=== PATIENT | male | born 1935 | race Caucasian/White ===

== ENCOUNTER 2016-10-08 10:04 | Inpatient (IN) | payer MEDICARE ==
[2016-10-08] VITALS (13 sets, daily range): BP systolic 109–154; BP diastolic 74–103; BMI 26.8
[~2016-10-08] VITALS: Ht 188.2 cm; Wt 94.8 kg
--- NOTE | ~2016-10-08 | HEMODYNAMI ---
PATIENT:KAMRAN CANELA MEDICAL RECORD: [id number] : 37 LOCATION:[facility] ADMISSION DATE: 10/08/16 Generatedon:10/09/20169:28 Patient name: KAMRAN CANELA Patient #: [id number] SSN: : 1935 Date of study: 10/09/2016 Page: Of Hemodynamic Procedure Report Patient Data Patient Demographics Procedure consent was obtained First Name: KAMRAN Gender: Male Last Name: HILTON : 1935 [facility] Initial: C Age: 81 year(s) Patient #: [id number] Race: Additional ID: [id number] Contact details Address: [address] State: [place] City: [place] Zip code: [address] Past Medical History Allergies: No known allergies Admission Admission Data Admission Date: 10/08/2016 Admission Time: 13:02 [facility] Payor[facility] Medicare Height (in.): 74.1 BSA: 2.22 (m2) Height (cm.): 188.21 BMI: 26.85 (kg/m2) Weight (lbs.): 209.68 Weight (kg.): 95.11 Lab Results Lab Result Date: 10/08/2016 Lab Result Time: 17:00 Biochemistry Name Units Result Min Max BUN mg/dl 15 --(--*-)-- 7 18 Creatinine mg/dl 1.4 --(----)*- 0.6 1.3 CBC Name Units Result Min Max Hematocrit % 40.2 -*(----)-- 42 54 Hemoglobin g/dl 13.7 --(*---)-- 13.5 17.5 Procedure Procedure Types Cath Procedure Diagnostic Procedure LHC LHC w/Coronaries PCI Procedure Coronary Stent Initial Miscellaneous Procedures Moderate Sedation up to 45 minutes Procedure Description Procedure Date Procedure Date: 10/09/2016 Procedure Start Time: 8:36 Procedure End Time: 9:23 Procedure Staff Name Function Negro Shepherd MD Performing Physician Xander Dorman RN Nurse Fei Fernandez RT Scrub Greta Sidhu RT Monitor Procedure Data Cath Procedure Fluoroscopy Diagnostic fluoroscopy Total fluoroscopy Time: 7.4 time: 7.4 min min Diagnostic fluoroscopy Total fluoroscopy dose: dose: 1277 mGy 1277 mGy Contrast Material Contrast Material Type Amount (ml) Isovue 300 168 Entry Location Entry Primary Successful Side Size Upsize Upsize Entry Closure Succes sful Closure Location (Fr) 1 (Fr) 2 (Fr) Remarks Device Remarks Femoral Right 5 Fr 6 Fr Sheath artery Short sutured in place Estimated blood loss: 10 ml Diagnostic catheters Device Type Used For End Catheter Placement Cordis 5Fr JL 4.0 Left Coronary Catheter (MP) Angiography Cordis 5Fr 3DRC Catheter Right Coronary (MP) Angiography Cordis 5Fr Pigtail LV Angiography Catheter (MP) Procedure Complications No complications Procedure Medications Medication Administration Route Dosage Oxygen NC 2 l/min Heparin Flush Bag added to field 2 bags (1000units/500ml NS) 0.9% NaCl I.V. 100 ml/hr Fentanyl I.V. 50 mcg Heparin Bolus I.V. 6500 units Integrilin (Bolus I.V. 8.5 ml 2mg/ml) Plavix P.O. 600 mg Hemodynamics Rest BSA: 2.22 (m2) HGB: 13.7 (g/dl) O2 Consumption: Estimated: 253.72 (ml/min) O2 Co nsumption indexed: Estimated:114.29 (ml/min/m) Heart Rate: 70 (bpm) Pressure Samples Time Site Value (mmHg) Purpose Heart Use Rate(bpm) 8:45 LV 125/10,12 Snapshot 103 8:46 AO 136/82(104) Pullback 75 8:46 LV 135/14,16 Pullback 75 Gradients Valve Time Site 1 Site 2 Mean SEP/DFP Peak To Heart Use (mmHg) (sec/min) Peak Rate (mmHg) (bpm) Aortic 8:46 LV AO 0 5 0 75 135/14,16 136/82(104) Calculations Valve P-P Mean Valve Index Valve Source Name Gradient Area Flow (cm2) Aortic 0 0 0 0 Snapshots Pre Cath Intra NCS Post Cath Vital Signs Time Heart Resp SPO2 etCO2 [id number] NIBP (mmHg) Rhythm Pain Sedation Rate (ipm) (%) (mmHg) (mmHg) Status Level (bpm) 8:24:22 75 21 100 0 0 148/77(123) A-Fib 0 (11) 10(A) , No pain 8:28:34 83 19 100 0 0 127/94(113) A-Fib 0 (11) 10(A) , No pain 8:32:42 87 18 99 0 0 113/82(100) A-Fib 0 (11) 9(A) , No pain 8:36:48 73 17 98 0 0 122/83(115) A-Fib 0 (11) 9(A) , No pain 8:40:56 71 18 100 0 0 116/88(100) A-Fib 0 (11) 9(A) , No pain 8:45:03 96 17 99 0 0 122/78(94) A-Fib 0 (11) 9(A) , No pain 8:49:13 76 17 98 0 0 119/80(101) A-Fib 0 (11) 9(A) , No pain 8:53:25 79 17 99 0 0 117/72(107) A-Fib 0 (11) 9(A) , No pain 8:57:37 76 18 99 0 0 116/68(93) A-Fib 0 (11) 9(A) , No pain 9:01:43 74 16 98 0 0 122/81(110) A-Fib 0 (11) 9(A) , No pain 9:05:57 75 17 99 0 0 124/66(109) A-Fib 0 (11) 9(A) , No pain 9:10:13 85 20 98 0 0 127/77(105) A-Fib 0 (11) 9(A) , No pain 9:14:21 87 17 99 0 0 124/88(113) A-Fib 0 (11) 9(A) , No pain 9:18:31 74 16 99 0 0 126/83(105) A-Fib 0 (11) 9(A) , No pain 9:22:41 85 16 100 0 0 139/86(111) A-Fib 0 (11) 9(A) , No pain 9:25:04 77 16 100 0 0 135/93(119) A-Fib 0 (11) 9(A) , No pain Medications Time Medication Route Dose Verified Delivered Reason Notes Effectiveness by by 8:28:56 Oxygen NC 2 Xander Templey Per physician l/min Dandy Dorman RN RN 8:29:06 Heparin Flush added 2 Xander Xander used for Bag to bags Dandy Dorman RN procedure (1000units/500ml field RN NS) 8:29:20 0.9% NaCl I.V. 100 Xander Terrell Per physician ml/hr Dandy Dorman RN RN 8:31:23 Fentanyl I.V. 50 Xander Xander for sedation mcg Dandy Dorman RN RN 8:54:52 Integrilin I.V. 8.5 Xander Terrell for wasted (Bolus 2mg/ml) ml Dandy Dorman RN antiplatelet 1.5mL of RN therapy integrilin bolus 8:54:52 Heparin Bolus I.V. 6500 Xander Terrell for units Dandy Dorman RN anticoagulation RN 8:56:17 Plavix P.O. 600 Xander Terrell for wasted mg Dandy Dorman RN antiplatelet 1.5mL of RN therapy integrilin bolus Procedure Log Time Note 7:56:21 Informed consent obtained and on chart 7:57:27 ACC Patient presents with Unstable Angina CCS Anginal Class 3--Marked limitation of physical activity, angina occurs with ordinary activity.. 7:57:33 Xander Dorman RN sent for patient. Start room use. 7:57:34 Time tracking: Regular hours 7:57:38 Plan of Care:Hemodynamics will remain stable., Cardiac rhythm will remain stable., Comfort level will be maintained., Respiratory function will remain adequate., Patient/ family verbilizes understanding of procedure., Procedure tolerated without complication., Recovers from procedure without complications.. 8:00:20 Lab Result : Hemoglobin 13.7 g/dl 8:00:20 Lab Result : Creatinine 1.4 mg/dl 8:00:20 Lab Result : BUN 15 mg/dl 8:00:20 Lab Result : Hematocrit 40.2 % 8:00:54 Insurance Payor : Medicare 8:01:01 Patient Weight : 209.68 kg 8:01:31 Patient Height : 74.1 cm 8:07:42 ACCPatient has been prescribed/administered the following anti-anginal medication within the last 2 weeks: Beta Johana 8:08:30 H&P Date Dictated: 10/08/2016 Within 30 days and on chart.. 8:08:35 Lab results completed and on chart. 8:13:35 Patient received from CVICU to CCL 1 Alert and oriented. Tansferred to table in Supine position. 8:13:37 Warm blankets applied, and owen hugger turned on for patient comfort. 8:13:37 Correct patient and procedure confirmed by team. 8:13:39 ECG and BP/O2 sat monitors applied to patient. 8:23:12 Vital chart was started 8:25:35 Rhythm: atrial fibrillation 8:25:38 Full Disclosure recording started 8:25:39 Pre-procedure instructions explained to patient. 8:25:42 Baseline sample Acquired. 8:25:44 Pre-op teaching completed and patient verbalized understanding. 8:25:47 Family in waiting room. 8:25:50 Patient NPO since Midnight. 8:25:59 Patient allergic to No known allergies 8:26:01 Is the patient allergic to Iodine/contrast media? No. 8:26:03 Is patient on blood thinner?Yes 8:28:31 ACC The patient was administered the following blood thiners within the last 24 hours: None 8:28:34 Patient diabetic? No. 8:28:36 Previous problem with sedation/anesthesia? No ? 8:28:37 Snore? Yes 8:28:38 Sleep apnea? No 8:28:39 Deviated septum? No 8:28:40 Opens mouth fully? Yes 8:28:41 Sticks out tongue? Yes 8:28:42 Airway obstruction? No ? 8:28:44 Dentures? No ? 8:28:47 Pre procedure: right dorsailis pedis pulse 2+ Normal; easily identifiable; not easily obliterated 8:28:52 Patient pain scale 0/10 ?. 8:28:56 Oxygen 2 l/min NC was administered by Xander Dorman RN; Per physician; 8:29:06 Heparin Flush Bag (1000units/500ml NS) 2 bags added to field was administered by Xander Dorman RN; used for procedure; 8:29:20 0.9% NaCl 100 ml/hr I.V. was administered by Xander Dorman RN; Per physician; 8:30:04 IV patent on arrival in left hand with 0.9% NaCl at [facility]. 8:30:09 Right groin area was prepped with chlora-prep and draped in sterile fashion 8:30:10 Alarms reviewed by R. N. 8:30:10 Sharps counted by scrub and verified by R.N. 8:30:13 Use device set Femoral Dx 8:30:15 Acist Syringe opened to sterile field. 8:30:15 Bag Decanter opened to sterile field. 8:30:16 Medline Cath Pack opened to sterile field. 8:30:16 Terumo 5Fr Cisco Sheath opened to sterile field. 8:30:17 St Avila 260cm J .035 wire opened to sterile field. 8:30:18 Acist Hand Control opened to sterile field. 8:30:19 Acist Manifold opened to sterile field. 8:30:19 Diagnostic Infinity 5Fr Multipack catheter opened to sterile field. 8:30:20 Tegaderm 4 x 4 opened to sterile field. 8:30:59 Final Timeout: patient, procedure, and site verified with staff and physician. All members of the team are in agreement. 8:31:01 Right groin site verified by team. 8:31:04 Physical assessment completed. ASA score P 2 - A patient with mild systemic disease as per Negro Shepherd MD. 8:31:07 Sedation plan: IV Moderate Sedation Versed, Fentanyl 8:31:23 Fentanyl 50 mcg I.V. was administered by Xander Dorman RN; for sedation; 8:36:17 Procedure started. 8:36:42 Zero performed for pressure channel P1 8:36:53 Local anesthetic to right femoral artery with Lidocaine 2% by Negro Shepherd MD.INITIAL ACCESS ONLY 8:38:22 A 5 Fr sheath was inserted into the Right Femoral artery 8:38:58 A Cordis 5Fr JL 4.0 Catheter (MP) was advanced over the wire and used for Left Coronary Angiography. 8:42:10 Catheter removed. 8:42:17 A Cordis 5Fr 3DRC Catheter (MP) was advanced over the wire and used for Right Coronary Angiography. 8:44:07 Catheter removed. 8:44:17 A Cordis 5Fr Pigtail Catheter (MP) was advanced over the wire and used for LV Angiography. 8:45:26 LV hemodynamics recorded. 8:45:28 Injector settings: Ml/sec: 10, Volume: 20, 8:45:41 LV gram done using AGUDELO 8:48:42 Catheter removed. 8:49:03 Moblico BasixCompak Inflation Kit opened to sterile field. 8:49:04 Medtronic Launcher 6Fr AR 1.0 guide catheter opened to sterile field. 8:49:05 Perdue BMW Solon 2 J-tip 300cm 0.014 guide wir opened to sterile field. 8:49:05 High Pressure Extension Tubing (Shepherd) opened to sterile field. 8:49:13 Terumo 6Fr Cisco Sheath opened to sterile field. 8:50:40 Sheath upsized to a 6 Fr Short. 8:51:56 6 Fr AR 1.0 guide catheter was inserted over the wire 8:54:52 Integrilin (Bolus 2mg/ml) 8.5 ml I.V. was administered by Xander Dorman RN; for antiplatelet therapy; wasted 1.5mL of integrilin bolus 8:54:52 Heparin Bolus 6500 units I.V. was administered by Xander Dorman RN; for anticoagulation; 8:56:04 BMW wire advanced. 8:56:17 Plavix 600 mg P.O. was administered by Xander Dorman RN; for antiplatelet therapy; wasted 1.5mL of integrilin bolus 9:02:23 Inflation Number: 1 A Perdue Ultra Rx 4.5 x 28 Stent was prepped and advanced across the Mid RCA. The stent was deployed at 15 EVON for 0:38 (min:sec). 9:03:40 Stent catheter was removed intact over wire. 9:10:11 Wire removed. 9:10:14 Guide catheter removed. 9:10:38 Sheath removed intact; hemostasis achieved with Sheath sutured in place to the Right Femoral artery. 9:10:43 Procedure ended.(Physican Out) 9:11:44 Fluoroscopy time 07.40 minutes. 9:11:48 Flurop Dose total: 1277 9:11:48 Fluoroscopy dose: 1277 mGy 9:11:55 Contrast amount:Isovue 300 168ml. 9:11:57 Sharps counted by scrub and verified by R.N. 9:12:05 Insertion/operative site no bleeding no hematoma. 9:12:11 Post-op/insertion site Right Femoral artery dressed using a 4 x 4 and Tegaderm. 9:12:16 Post right femoral artery:stable, clean and dry 9:12:17 Post Procedure Pulses reassessed and unchanged 9:12:21 Post-procedure physical assessment completed. ASA score P 2 - A patient with mild systemic disease as per Negro Shepherd MD. 9:12:23 Post procedure rhythm: unchanged. 9:12:26 Estimated blood loss: 10 ml 9:12:28 Post procedure instruction explained to patient.Patient verbalizes understanding. 9:12:29 Patient needs reinforcement of post procedure teaching. 9:12:38 Procedure type changed to Cath procedure, Diagnostic procedure, LHC, LHC w/Coronaries, PCI procedure, Coronary Stent Initial, Miscellaneous Procedures, Moderate Sedation up to 45 minutes 9:13:02 Procedure Complication : No complications 9:13:15 See physician's report for complete and final results. 9:19:23 2.0 Silk 685H opened to sterile field. 9:20:25 Procedure and supply charges have been captured, reviewed, submitted and are correct. 9:21:51 Vital chart was stopped 9:22:38 Tegaderm 4 x 4 opened to sterile field. 9:23:12 Report given to CVICU. 9:23:15 Patient transfered to CVICU with Bed. 9:23:29 Procedure ended. 9:23:29 Full Disclosure recording stopped 9:23:42 End room use (Document Last) Intervention Summary Intervention Notes Time ActionType Lesion and Equipment Action# Pressure Duration Attributes Used 9:02:23 Place stent Mid RCA Perdue 1 15 00:39 Ultra Rx 4.5 x 28 Stent Device Usage Item Name Manufacture Quantity Catalog Hospital Part Current Minimal Lot# / Number Charge Number Stock Stock Serial# Code Acist Acist 1 29952 [id number] 070646 071206 20 Syringe Medical Systems Inc Bag Microtek 1 2002S 332223 72799 408614 5 Decanter Medical Inc. Medline Cardinal 1 [id number] 477639 30638 457027 5 Cath SpeakPhone Terumo 5Fr Terumo 1 [id number] 860047 997415 918390 [address] [address] Avila 1 888243 753477 633470 028960 30 260cm J .035 wire Acist Hand Acist 1 35733 769608 048767 499972 5 Segopotso Medical Systems Inc Acist Acist 1 72410 635486 592206 691045 5 Homeforswap Medical Systems Inc Diagnostic Cardinal 1 [id number] 982823 67191 887092 30 Infinity Health 5Fr Multipack catheter Tegaderm 4 3M 2 1626W 614588 975773 926993 5 x 4 Cordis 5Fr Cardinal 1 424163 5 JL 4.0 Health Catheter (MP) Cordis 5Fr Cardinal 1 694143 5 3DRC Health Catheter (MP) Cordis 5Fr Cardinal 1 683964 5 Pigtail Health Catheter (MP) Merit Merit 1 [id number] 220909 855191 240887 15 BasixCompak Medical Inflation Kit Medtronic Medtronic 1 [id number] 129169 10529 854986 1 Launcher 6Fr AR 1.0 guide catheter Perdue BM Perdue 1 [id number] 708081 712592 017978 5 Solon 2 Vascular J-tip 300cm 0.014 guide wir High Merit 1 [id number] 153009 62632 814313 10 Pressure Medical Extension Tubing (Shepherd) Terumo 6Fr Terumo 1 [id number] 448170 600321 388260 40 Cisco Sheath Perdue Perdue 1 [id number] 741339 731996 998869 5 [id number] Ultra Rx Vascular 4.5 x 28 Stent 2.0 Silk Ethicon 1 685H 263744 97922 606531 5 685H Signature Audit [place] Stage Time Signature Unsigned Intra-Procedure 10/09/2016 Greta 9:28:11 AM Counts RT(R) Signatures Monitor : Greta Signature : Counts RT Date : Time : [facility] [address] [place] [address]
--- NOTE | 2016-10-08 01:00 | NUR ---
PATIENT RESTING IN BED WITH EYES CLOSED, BREATHING IS EVEN AND EFFORTLESS. PATIENT O2 SAT 97% ON 2L VIA NC. S1/S2 NOTED CONTROLLED AFIB WITH OCCAISIONAL PVC ON TELEMETRY, HR 73. ALL PULSES PALPABLE, PATIENT STATES "FEELS FINE, JUST TIRED". DENIES PAIN OR OTHER NEEDS AT THIS TIME, ALL VSS AND WILL CONTINUE TO MONITOR.
[~2016-10-08 10:04] MED LIST: BAYER CHEWABLE81 MG PO; BETAPACE 80 MG80 MG PO; CENTRUM COMPLE1 EACH PO; CIPRO500 MG PO; COLACE100 MG PO; DHEA25 M1 PO; DYAZIDE 37.5/251 CAP PO; ELECTROLYTE MISC; FEXOFENADINE H180 MG PO; FISH OIL 1,0001 CA1 PO; GLUCOSAMINE & C1 CAP PO; HCTZ25 MG PO; K-DUR20 MEQ PO; LASIX20 MG PO; LOVASTATIN10 MG PO; LUTEIN20 MG PO; MACA500 MG PO; MELATONIN 3 MG1 TAB PO; NIASPAN500 MG PO; PERCOCET 7.5/321 TAB PO; PLAVIX75 MG PO; PRADAXA150 MG PO; PRADAXA75 MG PO; PRAVACHOL20 MG PO; PRAVACHOL40 MG PO; PREVACID15 MG PO; PRILOSEC20 MG PO; PROTONIX40 MG PO; THERMOTABS 1 GM1 GM PO; VERELAN180 MG PO; ZAROXOLYN2.5 MG PO; [UNRECOGNIZED DRUG - OTHER]
[2016-10-08 10:27] LABS: BASOPHILS 0.3 % (0.0-2.0); EOSINOPHILS 2.2 % (0-7); HEMATOCRIT 40.7 % (42.0-54.0); HEMOGLOBIN 13.9 g/dL (13.5-17.5); IMMATURE GRANULOCYTES 0.3 % (0-5); LYMPHOCYTES 34.8 % (15-50); MCH 30.6 pg (26.0-34.0); MCHC 34.2 g/dL (31.0-37.0); MCV 89.6 fL (80.0-100.0); MEAN PLATELET VOLUME 11.6 fL (7.4-10.4); MONOCYTES 7.7 % (2-11); NEUTROPHILS 54.7 % (40-80); RBC 4.54 10x6/uL (4.20-6.10); RDW 14.1 % (11.5-14.5); WBC 10.1 10x3/uL (4.8-10.8)
[2016-10-08 10:39] LABS: PLATELET COUNT 165 10x3/uL (130-400)
[2016-10-08 10:56] LABS: ALBUMIN 3.7 g/dL (3.4-5.0); ALKALINE PHOSPHATASE 66 U/L (46-116); ALT (SGPT) 23 U/L (10-68); BILIRUBIN - TOTAL 0.89 mg/dL (0.2-1.3); CALC OSMOLALITY 276 mosm/kg (275-300); CALCIUM 9.4 mg/dL (8.5-10.1); CARBON DIOXIDE 33.3 mmol/L (21.0-32.0); CHLORIDE - SERUM 98 mmol/L (98-107); CREATININE - SERUM 1.5 mg/dL (0.6-1.3); POTASSIUM - SERUM 3.9 mmol/L (3.5-5.1); PROTEIN - SERUM 7.2 g/dL (6.4-8.2); SODIUM 136 mmol/L (136-145); UREA NITROGEN 14 mg/dL (7-18); eGFR NON AFRICAN AMERICAN 48 mL/min (90-120)
[2016-10-08 10:57] LABS: GLUCOSE 168 mg/dL (74-106)
[2016-10-08 11:21] LABS: TROPONIN-I < 0.017 ng/mL (0.000-0.060)
[2016-10-08 12:01] LABS: INR 1.21 (0.85-1.17); PROTIME 15.1 SECONDS (11.6-15.0)
[2016-10-08 12:02] LABS: APTT 42.9 SECONDS (22.8-39.4)
--- NOTE | 2016-10-08 14:20 | NUR ---
PATIENT ARRIVED FROM ER VIA CART. ASSISTED TO BE COMFORTABLE IN BED. ADMISSION COMPLETED.
[2016-10-08] MEDS ORDERED: MULTIPLE VITAMI1 TA1 PO (14:57)
[2016-10-08] MEDS ORDERED: BAYER CHEWABLE81 MG PO (14:57)
[2016-10-08 17:06] LABS: BASOPHILS 0.2 % (0.0-2.0); EOSINOPHILS 0.2 % (0-7); HEMATOCRIT 40.2 % (42.0-54.0); HEMOGLOBIN 13.7 g/dL (13.5-17.5); IMMATURE GRANULOCYTES 0.3 % (0-5); LYMPHOCYTES 28.6 % (15-50); MCH 30.4 pg (26.0-34.0); MCHC 34.1 g/dL (31.0-37.0); MCV 89.1 fL (80.0-100.0); MEAN PLATELET VOLUME 11.3 fL (7.4-10.4); MONOCYTES 4.9 % (2-11); NEUTROPHILS 65.8 % (40-80); PLATELET COUNT 172 10x3/uL (130-400); RBC 4.51 10x6/uL (4.20-6.10); RDW 13.9 % (11.5-14.5); WBC 8.7 10x3/uL (4.8-10.8)
[2016-10-08 17:26] LABS: ANION GAP 10.3 mmol/L (8-16); CALCIUM 9.2 mg/dL (8.5-10.1); CARBON DIOXIDE 32.9 mmol/L (21.0-32.0); CREATININE - SERUM 1.4 mg/dL (0.6-1.3); POTASSIUM - SERUM 4.2 mmol/L (3.5-5.1)
--- NOTE | 2016-10-08 18:06 | NUR ---
1600 PT REMAINS IN CONTROLLED AFIB ON MONITOR. ABLE TO ANSWER QUESTIONS AND FOLLOW COMMANDS WITH NO DEFICITS. PT COMPLAINING OF THIRST AND HUNGER. EXPLAINED THAT WE WILL ASK PHYSICIAN WHEN HE ROUNDS ABOUT DIET. PT STABLE AT THIS TIME.
--- NOTE | 2016-10-08 18:08 | NUR ---
1800 PT GIVEN DINNER TRAY AND ABLE TO EAT INDEPENDENTLY. PT DENIES PAIN AT THIS TIME. CONSENT HAS BEEN SIGNED FOR CARDIAC CATH TOMORROW.
--- NOTE | 2016-10-08 19:30 | NUR ---
RECIEVED PATIENT AWAKE AND ALERT IN BED, ASSESSMENT COMPLETED PER FLOWSHEET. AO X4, STATES "DIFFICULTY REMEMBERING SOME THINGS SINCE STROKE". EYES PERRLA @ 3MM WITH BRISK RESPONSE, SCLERA IS WHITE. PATIENT IS HARD OF HEARING AND WEARS GLASSES, NO HEARING AIDS NOTED. ORAL/NASAL MUCOSA IS MOIST AND INTACT, TONGUE IS MIDLINE. S1/S2 NOTED WITH PATIENT CONTROLLED AFIB ON TELEMETRY WITH HR 78. BREATHING IS EVEN AND EFFORTLESS ON 2L VIA NC WITH O2 SAT 98%, LUNG SOUNDS CLEAR ALL LOBES. ABDOMEN SOFT AND ROUND, BOWEL SOUNDS ACTIVE X4. PATIENT VOIDS USING URINAL AND BEDSIDE COMMODE, NO DIFFICULTIES. FULL ROM ALL EXTREMITIES WITH ALL PULSES PALPABLE, CAP REFILL <3 SEC. DOOR PATCHER/PEDAL STRENGTH IS EQUAL AND BILATERAL. PIV L WRIST/R AC NOTED, PATENT AND INFUSING. PATIENT DENIES PAIN OR OTHER NEEDS AT THIS TIME, ALL VSS AND WILL CONTINUE TO MONITOR.
--- NOTE | 2016-10-08 21:00 | NUR ---
PATIENT AT BEDSIDE FOR VISITATION, EXPLAINED CATH PROCEDURE TO STATED SATISFACTION. PATIENT ON BEDSIDE USING URINAL, NO DIFFICULTIES. NO FURTHER NEEDS AT THIS TIME, ALL VSS AND WILL CONTINUE TO MONITOR.
--- NOTE | 2016-10-08 22:56 | NUR ---
REASSESSMENT COMPLETED PER FLOWSHEET, PATIENT RESTING IN BED WITH EYES OPEN WATCHING TV. S1/S2 NOTED WITH CONTROLLED AFIB ON TELEMETRY WITH HR 75. BREATHING IS EVEN AND UNLABORED ON 2L VIA NC, OXYGEN SAT 99%. PATIENT DENIES PAIN OR OTHER NEEDS AT THIS TIME, ALL VSS AND WILL CONTINUE TO MONITOR.
[2016-10-09] VITALS (25 sets, daily range): BP systolic 111–147; BP diastolic 56–94; Ht 188.2 cm; Wt 94.8 kg
--- NOTE | 2016-10-09 02:57 | NUR ---
REASSESSMENT COMPLETED PER FLOWSHEET, PATIENT RESTING IN BED WITH EYES CLOSED. S1/S2 NOTED CONTROLLED AFIB WITH PVC ON TELEMETRY, HR 73. BREATHING IS EVEN AND UNLABORED, OXYGEN SAT 98% ON 2L VIA NC. ALL PULSES PALPABLE, PATIENT DENIES PAIN OR OTHER NEEDS AT THIS TIME. ALL VSS AND WILL CONTINUE TO MONITOR.
--- NOTE | 2016-10-09 05:14 | NUR ---
CHLORHEX BATH AND LINEN CHANGE PERFORMED, TOLERATED WELL. PATIENT DENIES PAIN OR OTHER NEEDS AT THIS TIME, ALL VSS AND WILL CONTINUE TO MONITOR.
--- NOTE | 2016-10-09 07:00 | NUR ---
REC'D CARE OF PT. A&O X3.
--- NOTE | 2016-10-09 07:48 | NUR ---
NPO FOR POURER OFF
--- NOTE | 2016-10-09 08:20 | NUR ---
TO BOBBIN WINDER.
--- NOTE | 2016-10-09 09:49 | NUR ---
REC'D FROM ANIMAL SHELTER SUPERVISOR AND HOOKED UP TO CM. AFIB RATE OF 78. SATTING 100 % ON 2L O2. RIGHT GROIN SHEATH IN PLACE. NO S/S OF BLEEDING OR HEMATOMA. REMINDED HIM TO KEEP LEG STRAIGHT. HIS HAS HIS GLASSES.
--- NOTE | 2016-10-09 09:54 | NUR ---
NS INFUSING AT 100 ML/HR.
--- NOTE | 2016-10-09 10:18 | NUR ---
AT BEDSIDE. CL LIQUIDS SERVED. TOLERATED LIQUIDS WELL. DENIES OTHER NEEDS.
--- NOTE | 2016-10-09 10:56 | NUR ---
NO S/S OF BLEEDING AT RIGHT GROIN ELECTRONIC TEST TECHNICIAN SITE.
--- NOTE | 2016-10-09 11:00 | NUR ---
REASSESSMENT COMPLETED PER FLOW SHEET. NO BLEEDING AT RIGHT GROIN. NO S/S OF HEMATOMA. SHIFTING PT. FORM SIDE TO SIDE Q2 HOURS FOR COMFORT AND TO PRESERVE SKIN INTEGRITY. CLWR. CPOC.
--- NOTE | 2016-10-09 11:44 | NUR ---
LUNCH TRAY SERVED
--- NOTE | 2016-10-09 11:52 | HP ---
PATIENT: KAMRAN CANELA MEDICAL RECORD: [id number] ACCOUNT: [id number] [facility]ATION:[facility] : 36 ADMISSION DATE: 10/08/16 HISTORY AND PHYSICAL EXAMINATION HISTORY OF PRESENT ILLNESS: Mr. Canela is an 81-year-old white male, patient of Dr. Huerta, who presents to the Emergency Room with a 3-day history of nausea and sour stomach, states he woke up this morning, was sitting at the table and he felt very weak, sweating, told his he did not feel good, apparently passed out and lost consciousness for 10-12 seconds. She brought him to the Emergency Room where he had another syncopal episode that was witnessed by the Emergency Room physician, he was pulseless at that time. CPR was initiated and he had approximately 14 chest compressions. He subsequently awoken. Unfortunately, it was not on the monitor at that time. He is subsequently admitted to the ICU for further evaluation. He has a known history of some valvular heart disease and coronary artery disease. Findings are very suspicious for some type of arrhythmia. He is currently in atrial fibrillation. PAST MEDICAL HISTORY: Significant for known hypertension, coronary artery disease with previous stents, atrial fibrillation, diabetes and hyperlipidemia. PAST SURGICAL HISTORY: Include gallbladder surgery, cardiac stents, cataracts, right upper arm surgery. ALLERGIES: None known. HOME MEDICATIONS: Include Pradaxa 150 b.i.d., niacin, pravastatin 40 mg a day, sotalol 80 mg b.i.d. and aspirin a day, sodium docusate and a multivitamin. FAMILY HISTORY: Noncontributory. SOCIAL HISTORY: Former smoker, does not drink. He is . REVIEW OF SYSTEMS: He complains of some fatigue and weakness. He has had some chest discomfort. Denies any palpitations, orthopnea or edema. He has some chronic left shoulder pain. He has had some sweats, but no fever, no chills. Nausea. He has no shortness of breath. PHYSICAL EXAMINATION: VITAL SIGNS: Temperature 97.9, pulse 82, respirations 16, BP 144/92, pulse ox is 100% on nasal cannula. GENERAL: Alert, awake, in no distress. HEENT: Anicteric. Mucous membranes are moist. NECK: Soft and supple. No bruits. HEART: Regular with II/ murmur. LUNGS: Clear with good breath sounds bilaterally. ABDOMEN: Soft. No edema. NEUROLOGIC: Without any gross focal deficits. CT head reveals nothing acute. There is some encephalomalacia involving the posterior aspect of his right parietal and right temporal lobe from previous CVA. Chest x-ray shows some cardiomegaly. Discussed with Dr. Shepherd and echo looks worse with increased mitral insufficiency. IMPRESSION: HISTORY AND PHYSICAL [id number] KAMRAN CANELA 1. Syncopal episode. 2. Congestive heart failure. 3. Chest pain. 4. Known coronary artery disease. 5. Elevated BNP. 6. Renal insufficiency. 7. History of previous cerebrovascular accident, atrial fibrillation, type 2 diabetes, currently controlled by diet, history of cardiac stents. PLAN: Admit to ICU. Consult Dr. Shepherd. Echo shows increasing mitral insufficiency. We will get MRI brain. See orders for rest of plan. TRANSINT:[id number] Voice Confirmation ID: [id number] DOCUMENT ID: [id number] DEYSI CHOW DO at 1152 CC: [id number] DICTATION DATE: 10/08/16 171 LUDLOW MACHINE OPERATOR: 10/08/162020 ADM IN [facility] [address] [place] [address]
--- NOTE | 2016-10-09 13:19 | NUR ---
RESTING WITH EYES CLOSED. VSS.
--- NOTE | 2016-10-09 14:23 | NUR ---
ALFREDO AT BEDSIDE. HE DC'D RIGHT GROIN SHEATH.
--- NOTE | 2016-10-09 14:27 | NUR ---
NO S/S OF BLEEDING AT RIGHT GROIN DC'D SHEATH SITE.
--- NOTE | 2016-10-09 14:49 | NUR ---
REASSESSMENT COMPLETED PER FLOW SHEET. NO ACUTE CHANGES. DENIES NEEDS. DENIES PAIN. CLWR . CPOC.
--- NOTE | 2016-10-09 15:07 | NUR ---
FAMILY AT [facility]. UPDATED. VSS. NO S/S OF BLEEDING.
--- NOTE | 2016-10-09 16:30 | NUR ---
TOTAL ASSIST WITH DINNER TRAY.
--- NOTE | 2016-10-09 18:03 | NUR ---
FAMILY AT BEDSIDE. UPDATED.
--- NOTE | 2016-10-09 19:44 | NUR ---
ASSESSMENT COMPLETED PER FLOWSHEET, RECEIVED PATIENT AWAKE AND ALERT WITH FAMILY AT BEDSIDE. AO X4 WITH PLEASANT DEMEANOR. EYES PERRLA @ 3MM WITH BRISK RESPONSE, SCLERA IS WHITE. ORAL/NASAL MUCOSA IS MOIST AND INTACT, TONGUE IS MIDLINE. S1/S2 NOTED WITH CONTROLLED AFIB ON TELEMETRY, HR 75 AND IRREGULAR. BREATHING IS EVEN AND UNLABORED ON 2L VIA NC, LUNG SOUNDS CLEAR ALL LOBES. ABDOMEN IS SOFT AND NON-TENDER, BOWEL SOUNDS ACTIVE X4. CATH SITE R GROIN, SHEATH REMOVED WITH DRESSING CDI. AMBULATES SELF TO BATHROOM FOR VOIDING, NO DIFFICULTIES. FULL ROM ALL EXTREMITIES, ALL PULSES PALPABLE WITH CAP REFILL <3 SEC. PIV X2 NOTED L WRIST/R AC, PATENT WITH FLUIDS INFUSING. PATIENT DENIES PAIN OR OTHER NEEDS AT THIS TIME, ALL VSS AND WILL CONTINUE TO MONITOR.
--- NOTE | 2016-10-09 21:00 | NUR ---
AT BEDSIDE FOR VISITATION, ALL HS MEDS GIVEN WITHOUT DIFFICULTY. NO QUESTIONS/CONCERNS AT THIS TIME, ALL VSS AND WILL CONTINUE TO MONITOR.
--- NOTE | 2016-10-09 22:40 | NUR ---
REASSESSMENT COMPLETED PER FLOWSHEET, PATIENT RESTING IN BED WITH EYES CLOSED. S1/S2 NOTED WITH CONTROLLED AFIB ON TELEMETRY WITH HR 79, ALL PULSES PALPABLE. BREATHING IS EVEN AND EFFORTLESS ON 2L VIA NC, OXYGEN SAT 98%. R GROIN SITE IS SOFT AND NON-TENDER, NO BLEEDING NOTED WITH DRESSING CDI. PATIENT DENIES PAIN OR OTHER NEEDS AT THIS TIME, ALL VSS AND WILL CONTINUE TO MONITOR.
[2016-10-10] VITALS (8 sets, daily range): BP systolic 115–137; BP diastolic 66–91
--- NOTE | 2016-10-10 00:44 | NUR ---
PATIENT RESTING IN BED WITH EYES CLOSED, BREATHING IS EVEN AND UNLABORED. ALL PULSES PALPABLE, CAP REFILL <3 SEC. ALL VSS AND WILL CONTINUE TO MONITOR.
--- NOTE | 2016-10-10 02:53 | NUR ---
REASSESSMENT COMPLETED PER FLOWSHEET, PATIENT UP AT BEDSIDE USING URINAL. CONTROLLED AFIB ON TELEMETRY WITH HR 84, IRREGULAR. BREATHING IS EVEN AND UNLABORED, OXYGEN SAT 99% ON 2L VIA NC. AMBULATED WITHOUT ASSISTANCE, RETURNED AND REPOSITIONED. CATH SITE SOFT AND NON-TENDER, DRESSING CDI WITH PULSES PALPABLE. DENIES PAIN OR OTHER NEEDS AT THIS TIME, ALL VSS AND WILL CONTINUE TO MONITOR.
--- NOTE | 2016-10-10 05:13 | NUR ---
PATIENT RESTING IN BED WITH EYES CLOSED, BREATHING IS EVEN AND UNLABORED. CONTROLLED AFIB ON TELMETRY, HR 92 IRREGULAR. OXYGEN SAT 99% ON 2L VIA NC, ALL PULSES PALPABLE. R GROIN DRESSING CDI, SOFT WITH NO BLEEDING NOTED. ALL VSS AND WILL CONTINUE TO MONITOR.
--- NOTE | 2016-10-10 07:34 | NUR ---
0700 REPORT RECEIVED FROM ESPERANZA RO AT BEDSIDE. AM ASSESSMENT DOCUMENTED PER FLOWSHEET. PATIENT AWAKE, ALERT AND VISITING WITH AT BEDSIDE. NC 2L WITH NO RESP DISTRESS, ALL VITALS WNL.
--- NOTE | 2016-10-10 08:40 | NUR ---
AM MEDS GIVEN PER SEP. DR. TOBIN ON FLOOR TO SEE PATIENT.
--- NOTE | 2016-10-10 09:14 | NUR ---
UP FROM BED, AMBULATED TO BATHROOM FOR BOWEL MOVEMENT. RX OF PLAVIX CALLED IN AT PATIENT REQUEST TO [facility] ON [address].
--- NOTE | 2016-10-10 10:00 | NUR ---
Is the patient Alert and Oriented? Yes 0 * How many steps to enter\exit or inside your home? 13 0 * PCP DR. QUACH 0 * Pharmacy [facility] ON [address] 0 * Preadmission Environment Home with Family 0 * ADLs Independent 0 * Equipment Cane 0 * List name and contact numbers for known caregivers / representatives who currently or will assist patient after discharge: SPOUSE: NANCY [phone] 0 * Community resources currently utilized None 0 * Please name any agencies selected above. PATIENT STATES HE HAD HOUSE CALLS IN THE PAST BUT NOT CURRENTLY 0 * Additional services required to return to the preadmission environment? No 0 * Can the patient safely return to the preadmission environment? Yes 0 * Has this patient been hospitalized within the prior 30 days at any hospital? No PATIENT IS AWAKE AND ALERT, STATES HE IS INDEPENDENT IN ALL ADL'S. HIS IS HERE AND PLANS TO DRIVE HIM HOME. PATIENT STATES HIS PCP IS DR. QUACH. HE GETS HIS MEDS FROM [facility] ON [address]. HE USES A CANE TO ASSIST WITH AMBULATION. PATIENT STATES HE HAS NOT HAD HOME HEALTH BUT DID HAVE [facility] HOUSE CALLS ABOUT 2 YEARS AGO. PATIENT STATES THERE ARE 13 STEPS TO ENTER HIS HOME. NO DISCHARGE NEEDS IDENTIFIED AT THIS TIME.
--- NOTE | 2016-10-10 10:27 | NUR ---
PIV REMOVED FROM LEFT HAND WITH BANDAID APPLIED AND PIV REMOVED FROM R AC WITH BANDAID APPLIED. UP TO BEDSIDE TO DRESS WITH ASSIST FROM . D/C INSTRUCTIONS DISCUSSED WITH PATIENT AND AT BEDSIDE. WHEELED OUT VIA WHEELCHAIR BY CVICU STAFF.
--- NOTE | 2016-10-14 08:17 | EC ---
PATIENT:KAMRAN CANELA DATE OF SERVICE: 10/08/16 SEX: M MEDICAL RECORD: [id number] DATE OF : 36 LOCATION:[place] [address] AGE OF PATIENT: 81 ADMISSION DATE: 10/08/16 REFERRING PHYSICIAN: INTERPRETING PHYSICIAN: MALIA SHEPHERD M.D. ECHOCARDIOGRAM REPORT ECHO CHARGES 4 ECHO COMPLETE CLINICAL DIAGNOSIS: SYNCOPE ECHOCARDIOGRAPHIC MEASUREMENTS (adult normal given) AC root (d.<3.7cm) 4.2 LV Septum d (<1.2 cm> 1.7 Valve Excursion 2.0 LV Septum (systole) 2.3 Left Atria (s.<4.0cm> 4.6 LVPW d(<1.2cm) 1.4 RV (d.<2.3cm) 3.1 LVPW (sytole) 2.2 LV diastole(<5.6CM) 6.2 MV E-F(>70mm/sec) LV systole 4.2 LVOT Diameter 2.0 MV exc.(>10mm) Est.ejection fraction (50-75%) Pericardial Effusion N DOPPLER: LVIT A E 134 LA RVSP 64.0 LVOT 75.0 AOP1/2T Asc. Ao 95.0 RVOT 51.0 RA PA 89.0 AV Gradient Peak 3.6 AV Mean 1.9 AV Area 2.7 MV Gradient Peak 13.2 MV Mean 5.7 MV Area COMMENTS: Behavioral Modification Assistant: Lesli RAMIREZ [place] Hearing Impaired Teacher:2 Dr. Shepherd TAPE# PACS DATE OF SERVICE: 10/08/2016 INDICATION: Syncope. DESCRIPTION: Left ventricle demonstrates left ventricular hypertrophy. No regional wall motion abnormalities are seen. Estimated ejection fraction is 55%. The posterior leaflet of mitral valve demonstrates prolapse. It is somewhat redundant. I cannot exclude a ruptured chordae. There is sgnsyjff-ie-dlymju regurgitation seen. It is directed towards the septum. Left atrium is moderately dilated. The aortic valve is trileaflet. I do not see ECHOCARDIOGRAM REPORT [id number] KAMRAN CANELA stenosis or regurgitation. Right ventricle is mildly dilated. Tricuspid valve is normal. There is moderate regurgitation seen. Right ventricular systolic pressure is elevated at 64 mmHg. There is no pericardial effusion noted. IMPRESSION: 1. Left ventricular hypertrophy with preserved ejection of 55%. 2. Hflrshze-pa-ojwaxs mitral regurgitation with prolapse of the posterior leaflet. I cannot exclude a ruptured chordae. 3. Moderate tricuspid regurgitation with elevated pulmonary pressures. TRANSINT:[id number] Voice Confirmation ID: [id number] DOCUMENT ID: [id number] MALIA SHEPHERD M.D. at 0817 CC: [id number] DICTATION DATE: 10/08/16 1447 BUILDING ENGINEER: 10/09/16 1129 DIS IN 10/10/16 [place] [id number] [place] [address]
--- NOTE | 2016-10-14 08:17 | OP ---
PATIENT NAME: KAMRAN CANELA MEDICAL RECORD: [id number] :36 LOCATION:[address] ADMISSION DATE:10/08/16 SURGEON: MALIA GARRISON M.D. DATE OF OPERATION: 10/09/2016 REFERRING PHYSICIAN: Octavio Tijerina DO. PROCEDURES PERFORMED: 1. Selective coronary angiography. 2. Left heart catheterization with ventriculogram. 3. PTCA and stent placed right coronary. INDICATION: An 81-year-old gentleman who presents after a syncopal episode. EQUIPMENT USED: Diagnostic 5-Malagasy JL4, Primo right, pigtail catheter. INTERVENTION: A 6-Malagasy AR1 guide, BMW guide wire, 4.5 x 26 mm Ultra Stent. TECHNIQUE: A 5-Malagasy sheath was inserted in retrograde fashion in the right common femoral artery. Next, selective coronary angiography was performed in standard 5-Malagasy JL4 and Primo right. Left heart catheterization was performed using pigtail catheter. CORONARY ANATOMY: 1. Left main: Left main trunk is moderate in caliber. It gives rise to the LAD and circumflex. There is no obstruction. 2. LAD: This is a large caliber vessel extending to the apex. It is a smooth-walled vessel. It has mild irregularities throughout its course, but nothing worse than 20%. The first diagonal branch has been stented. The stent is occluded. The diagonal branch fills in retrograde fashion from the apical LAD. This appears to be a chronic occlusion. 3. Circumflex: This vessel is moderate in caliber. It has mild irregularities throughout its course. 4. Right coronary: This vessel is quite large and dominant. The mid vessel demonstrates an ulcerated 80% to 90% stenosis and there is thrombus seen at the lesion. 5. Left ventricle: Left ventricle is normal in size. There is mild hypokinesis noted. Estimated ejection is in the order of 45%. There does appear to be moderate mitral regurgitation. DESCRIPTION OF INTERVENTION: It was felt in all likelihood that the right coronary artery is the cause of syncopal episode as there was thrombus noted at the side of the lesion. A 70 units per kilogram of heparin was infused. Integrilin bolus was given as well. A 6-Malagasy AR1 guide was advanced and engaged in the right coronary artery. Next, a BMW guide wire was placed in the distal vessel. A 4.5 x 26 mm Ultra Stent was then placed across the stenosis and deployed at 15 atmospheres. Injection reveals stent to be widely patent with 0% residual stenosis. There is no evidence of any distal embolization from the thrombus. At this point, the wire and guide were removed. IMPRESSION: Successful percutaneous transluminal coronary angioplasty and stent of the right coronary artery with 0% residual stenosis. TRANSINT:[id number] Voice Confirmation ID: [id number] DOCUMENT ID: [id number] OPERATIVE REPORT [id number] KAMRAN CANELA TIMOTHY E M.D. at 0817 CC: [id number] DICTATION DATE: 10/09/16915 THREAD TWISTER: 10/09/16 1457 DIS IN 10/10/16 [place] [address] [place] [address]
== END 2016-10-10 10:31 | disposition home or self-care (01) | DRG 248 ==
LOC: D.ER 10:04 → D.CVICU 13:02 → D.ICU 13:02 → D.CVICU 19:47
PROVIDERS: Family Medicine; Internal Medicine Cardiovascular Disease; ADMIT Family Medicine
PROC: B2111ZZ Fluoroscopy of Multiple Coronary Arteries using Low Osmolar Contrast (ICD-10-PCS; 2016-10-09)
PROC: B2151ZZ Fluoroscopy of Left Heart using Low Osmolar Contrast (ICD-10-PCS; 2016-10-09)
PROC: 02703DZ Dilation of Coronary Artery, One Artery with Intraluminal Device, Percutaneous Approach (ICD-10-PCS; principal; 2016-10-09 08:00)
PROC: 4A023N7 Measurement of Cardiac Sampling and Pressure, Left Heart, Percutaneous Approach (ICD-10-PCS; 2016-10-09 08:00)
DX: I25.10 Atherosclerotic heart disease of native coronary artery without angina pectoris (principal); I50.31 Acute diastolic (congestive) heart failure; N17.9 Acute kidney failure, unspecified; R55 Syncope and collapse; I48.91 Unspecified atrial fibrillation; I69.398 Other sequelae of cerebral infarction; G93.89 Other specified disorders of brain; Z95.5 Presence of coronary angioplasty implant and graft; I11.0 Hypertensive heart disease with heart failure; I34.0 Nonrheumatic mitral (valve) insufficiency; E11.9 Type 2 diabetes mellitus without complications; Z87.891 Personal history of nicotine dependence

== ENCOUNTER 2017-02-22 20:06 | Observation (INO) | payer MEDICARE ==
[~2017-02-22] VITALS: Ht 188.2 cm; Wt 98.0 kg
[~2017-02-22 20:06] MED LIST changes: +MULTIPLE VITAMI1 TA1 PO
[2017-02-22 20:56] LABS: BASOPHILS 0.4 % (0-2); EOSINOPHILS 1.8 % (0-7); HEMATOCRIT 38.7 % (42.0-54.0); HEMOGLOBIN 13.2 g/dL (13.5-17.5); IMMATURE GRANULOCYTES 0.3 % (0-5); LYMPHOCYTES 36.1 % (15-50); MCH 30.8 pg (26.0-34.0); MCHC 34.1 g/dL (31.0-37.0); MCV 90.4 fL (80.0-100.0); MEAN PLATELET VOLUME 11.5 fL (7.4-10.4); MONOCYTES 10.8 % (2-11); NEUTROPHILS 50.6 % (40-80); PLATELET COUNT 196 10x3/uL (130-400); RBC 4.28 10x6/uL (4.20-6.10); RDW 14.9 % (11.5-14.5); WBC 11.1 10x3/uL (4.8-10.8)
[2017-02-22 21:15] LABS: ALBUMIN 3.4 g/dL (3.4-5.0); ALKALINE PHOSPHATASE 70 U/L (46-116); ALT (SGPT) 56 U/L (10-68); BILIRUBIN - TOTAL 0.63 mg/dL (0.2-1.3); CALC OSMOLALITY 267 mosm/kg (275-300); CALCIUM 8.7 mg/dL (8.5-10.1); CARBON DIOXIDE 29.1 mmol/L (21.0-32.0); CHLORIDE - SERUM 96 mmol/L (98-107); CREATININE - SERUM 1.4 mg/dL (0.6-1.3); GLUCOSE 120 mg/dL (74-106); POTASSIUM - SERUM 3.9 mmol/L (3.5-5.1); PROTEIN - SERUM 7.1 g/dL (6.4-8.2); SODIUM 132 mmol/L (136-145); UREA NITROGEN 17 mg/dL (7-18); eGFR NON AFRICAN AMERICAN 52 mL/min (90-120)
[2017-02-22 21:22] LABS: AMYLASE - SERUM 66 U/L (25-115); CREATINE KINASE 51 UL (21-232); LIPASE 312 U/L (73-393); PRO BNP 6119 pg/mL (0-450)
[2017-02-22 21:25] LABS: TROPONIN-I < 0.017 ng/mL (0.000-0.060)
[2017-02-22 21:44] LABS: APPEARANCE HAZY (CLEAR); BILIRUBIN NEGATIVE (NEGATIVE); COLOR YELLOW (YELLOW); GLUCOSE NEGATIVE (NEGATIVE); KETONE NEGATIVE (NEGATIVE); LEUKOCYTE ESTERASE NEGATIVE (NEGATIVE); NITRITE NEGATIVE (NEGATIVE); PROTEIN TRACE mg/dL (NEGATIVE); SPECIFIC GRAVITY 1.015 (1.005-1.020); UROBILINOGEN NORMAL (NORMAL)
[2017-02-22 21:51] LABS: BACTERIA FEW /hpf (NONE SEEN); EPITHELIAL CELLS OCC /hpf (0-5); WHITE CELLS - URINE OCC /hpf (0-5)
[2017-02-23 01:09] VITALS: BP 133/96; Ht 188.2 cm; Wt 98.0 kg
[2017-02-23 01:09] LABS: CKMB 0.4 U/L (0.0-3.6); CREATINE KINASE 44 UL (21-232); TROPONIN-I < 0.017 ng/mL (0.000-0.060)
[2017-02-23] MEDS ORDERED: CARAFATE1 G PO (01:22)
[2017-02-23] MEDS ORDERED: ZOFRAN ODT4 MG/UDTAB PO (01:22)
[2017-02-23] MEDS ORDERED: PROZAC10 MG PO (01:23)
[2017-02-23] MEDS ORDERED: OMEPRAZOLE40 MG PO (01:24)
--- NOTE | 2017-02-23 07:20 | NUR ---
AM ROUNDS- PT IN BED, WITH EYES CLOSED, BED LOW AND WHEELS LOCKED. BEDSIDE RAILS X2, CALL LIGHT IN REACH, NAD NOTED, WILL CONTINUE TO MONITOR.
[2017-02-23 07:30] LABS: CKMB 0.5 U/L (0.0-3.6); CREATINE KINASE 38 UL (21-232)
[2017-02-23 07:33] LABS: TROPONIN-I < 0.017 ng/mL (0.000-0.060)
[2017-02-23 07:34] VITALS: BP 117/73
--- NOTE | 2017-02-23 11:00 | NUR ---
PT UP AMBULATING IN THE HALLWAY WITH CANE AND FAMILY AT SIDE. NAD NOTED, WILL CONTINUE TO MONITOR.
[2017-02-23 11:50] VITALS: BP 144/90
[2017-02-23 13:19] LABS: CKMB 0.5 U/L (0.0-3.6); CREATINE KINASE 42 UL (21-232)
[2017-02-23 13:23] LABS: TROPONIN-I < 0.017 ng/mL (0.000-0.060)
--- NOTE | 2017-02-23 15:42 | NUR ---
PROVIDED VERBAL AND WRITTEN DISCHARGE TEACHING TO PT AND , BOTH VERBALIZED UNDERSTANDING REGARDING DISCHARGE TEACHING. D/C LEFT HAND IV, TIP INTACT. PT LEFT UNIT VIA WHEELCHAIR, ACCOMPANIED BY , NAD NOTED.
== END 2017-02-23 16:10 | disposition home or self-care (01) ==
LOC: D.ER 20:06 → D.M2 02-23 00:41 → OBSVTIME 02-23 00:41 → D.M2 02-23 00:41
PROVIDERS: Family Medicine; Nurse Practitioner Family; ADMIT Family Medicine
DX: R10.9 Unspecified abdominal pain (principal); I25.10 Atherosclerotic heart disease of native coronary artery without angina pectoris; Z95.5 Presence of coronary angioplasty implant and graft; I11.0 Hypertensive heart disease with heart failure; I50.9 Heart failure, unspecified; K21.9 Gastro-esophageal reflux disease without esophagitis; E11.9 Type 2 diabetes mellitus without complications; I48.91 Unspecified atrial fibrillation; Z86.73 Personal history of transient ischemic attack (TIA), and cerebral infarction without residual deficits; Z87.891 Personal history of nicotine dependence

== ENCOUNTER 2017-03-04 18:46 | Inpatient (IN) | payer MEDICARE ==
[~2017-03-04] VITALS: Ht 188.2 cm; Wt 93.6 kg
--- NOTE | ~2017-03-04 | HEMODYNAMI ---
PATIENT:KAMRAN CANELA MEDICAL RECORD: [id number] : 36 [facility] [facility] [id number] ADMISSION DATE: 03/05/17 Generatedon:03/06/20179:21 Patient name: KAMRAN CANELA Patient #: [id number] SSN: : 1935 Date of study: 03/06/2017 Page: Of Hemodynamic Procedure Report Patient Data Patient Demographics Procedure consent was obtained First Name: KAMRAN Gender: Male Last Name: HILTON : 1935 [facility] Initial: C Age: 81 year(s) Patient #: [id number] Race: Additional ID: [id number] Contact details Address: [address] State: [place] City: [place] Zip code: [address] Past Medical History Allergies: No known allergies Admission Admission Data Admission Date: 03/05/2017 Admission Time: 17:02 [facility] Lab Result Date: 03/06/2017 Lab Result Time: 5:03 Biochemistry Name Units Result Min Max BUN mg/dl 18 --(---*)-- 7 18 Creatinine mg/dl 1.6 --(----)-* 0.6 1.3 CBC Name Units Result Min Max Hematocrit % 39.8 -*(----)-- 42 54 Hemoglobin g/dl 13.6 --(*---)-- 13.5 17.5 Procedure Procedure Types Cath Procedure Diagnostic Procedure LHC [facility] w/Coronaries PCI Procedure Coronary Stent Initial Miscellaneous Procedures Moderate Sedation up to 30 minutes Procedure Description Procedure Date Procedure Date: 03/06/2017 Procedure Start Time: 8:56 Procedure End Time: 9:21 Procedure Staff Name Function Zac Ratliff MD Performing Physician Neto Tolentino RT Scrub Bethany Clemens RN Nurse Fei Fernandez RT Monitor Procedure Data Cath Procedure Fluoroscopy Diagnostic fluoroscopy Total fluoroscopy Time: 7 time: 7 min min Diagnostic fluoroscopy Total fluoroscopy dose: dose: 1044 mGy 1044 mGy Contrast Material Contrast Material Type Amount (ml) Isovue 300 129 Entry Location Entry Primary Successful Side Size Upsize Upsize Entry Closure Succes sful Closure Location (Fr) 1 (Fr) 2 (Fr) Remarks Device Remarks Femoral Right 5 Fr 6 Fr Exoseal artery Short Estimated blood loss: 10 ml Diagnostic catheters Device Type Used For End Catheter Placement Cordis 5Fr Pigtail Procedure Catheter (MP) Cordis 5Fr JL 4.0 Procedure Catheter (MP) Cordis 5Fr 3DRC Catheter Procedure (MP) Procedure Complications No complications Procedure Medications Medication Administration Route Dosage Oxygen NC 2 l/min Lidocaine 2% added to field 20 Heparin Flush Bag added to field 2 bags (1000units/500ml NS) 0.9% NaCl I.V. 100 ml/hr Versed I.V. 0.5 mg Fentanyl I.V. 50 mcg Heparin Bolus I.V. 4000 units Integrilin (Bolus I.V. 8.5 ml 2mg/ml) Plavix P.O. 600 mg Hemodynamics Rest Heart Rate: 84 (bpm) Snapshots Pre Cath Intra NCS Post Cath Vital Signs Time Heart Resp SPO2 etCO2 [id number] NIBP (mmHg) Rhythm Pain Sedation Rate (ipm) (%) (mmHg) (mmHg) Status Level (bpm) 8:43:38 84 23 97 0 0 147/110(134) A-Fib 0 (11) 10(A) , No pain 8:47:48 93 21 100 0 0 148/105(121) A-Fib 0 (11) 10(A) , No pain 8:51:58 80 17 100 0 0 138/99(128) A-Fib 0 (11) 10(A) , No pain 8:56:08 86 30 100 0 0 131/89(105) A-Fib 0 (11) 9(A) , No pain 9:00:07 79 19 98 0 0 122/97(108) A-Fib 0 (11) 9(A) , No pain 9:04:16 84 30 99 0 0 119/73(99) A-Fib 0 (11) 9(A) , No pain 9:08:19 86 27 98 0 0 106/82(100) A-Fib 0 (11) 9(A) , No pain 9:12:17 82 30 98 0 0 121/87(106) A-Fib 0 (11) 9(A) , No pain 9:16:19 88 26 98 0 0 109/94(101) A-Fib 0 (11) 9(A) , No pain 9:20:20 85 30 98 0 0 108/76(99) A-Fib 0 (11) 9(A) , No pain Medications Time Medication Route Dose Verified Delivered Reason Notes Effectiveness by by 8:40:31 Oxygen NC 2 Zac Sims used for l/min Gaudencio Clemens RN procedure 8:42:55 Lidocaine 2% added 20ml Zacdorian Frank for local to vial Gaudencio Ratliff MD anesthetic field 8:43:00 Heparin Flush added 2 Zac Zac used for Bag to bags Gaudencio Ratliff MD procedure (1000units/500ml field NS) 8:43:10 0.9% NaCl I.V. 100 Zac Sims Per physician ml/hr Gaudencio Clemens RN 8:54:17 Versed I.V. 0.5 Zac Sims for sedation mg Gaudencio Clemens RN 8:54:23 Fentanyl I.V. 50 Zac Urenaie for sedation mcg Gaudencio Clemens RN 9:01:18 Heparin Bolus I.V. 4000 Zac Sims for verifie d units Gaudencio Clemens RN anticoagulation with dr ratliff 9:02:43 Integrilin I.V. 8.5 Zac Sims for Wasted (Bolus 2mg/ml) ml Gaudencio Clemens RN antiplatelet 1.5 ml therapy of vial 9:15:26 Plavix P.O. 600 Zac Sims for mg Gaudencio Clemens RN antiplatelet therapy Procedure Log Time Note 7:58:54 Informed consent obtained and on chart 7:59:31 Time tracking: Regular hours 7:59:35 Plan of Care:Hemodynamics will remain stable., Cardiac rhythm will remain stable., Comfort level will be maintained., Respiratory function will remain adequate., Patient/ family verbilizes understanding of procedure., Procedure tolerated without complication., Recovers from procedure without complications.. 8:00:19 H&P Date Dictated: 03/05/2017 Within 30 days and on chart.. 8:00:29 Bethany Clemens RN sent for patient. Start room use. 8:19:38 Patient received from Med II to CCL 1 Alert and oriented. Tansferred to table in Supine position. 8:19:39 Warm blankets applied, and owen hugger turned on for patient comfort. 8:19:40 Correct patient and procedure confirmed by team. 8::41 ECG and BP/O2 sat monitors applied to patient. 8:24:57 Pre-procedure instructions explained to patient. 8:24:58 Pre-op teaching completed and patient verbalized understanding. 8:25:00 Family in patients room. 8:25:02 Patient NPO since Midnight. 8:25:03 Is the patient allergic to Iodine/contrast media? No. 8:25:05 Is patient on blood thinner?No 8:25:08 Patient diabetic? Yes. 8:25:10 If diabetic: On Metformin? No 8:25:25 Previous problem with sedation/anesthesia? No ? 8:25:27 Snore? Yes 8:25:29 Sleep apnea? No 8:25:30 Deviated septum? No 8:25:31 Opens mouth fully? Yes 8:25:32 Sticks out tongue? Yes 8:25:34 Airway obstruction? No ? 8:25:37 Dentures? Yes IN 8:25:41 Pre procedure: right dorsailis pedis pulse 1+ Palpable, but thready & weak; easily obliterated 8:25:44 Patient pain scale 0/10 ?. 8:26:12 IV right antecubital D/C'd due to infiltration. 8:40:31 Oxygen 2 l/min NC was administered by Bethany Clemens RN; used for procedure; 8:42:32 Vital chart was started 8:42:55 Lidocaine 2% 20ml vial added to field was administered by Zac Ratliff MD; for local anesthetic; 8:43:00 Heparin Flush Bag (1000units/500ml NS) 2 bags added to field was administered by Zac Ratliff MD; used for procedure; 8:43:10 0.9% NaCl 100 ml/hr I.V. was administered by Bethany Clemens RN; Per physician; 8::57 Baseline sample Acquired. 8:53:04 Rhythm: atrial fibrillation 8:53:12 Lab results completed and on chart. 8:53:15 Right groin area was prepped with chlora-prep and draped in sterile fashion 8:53:16 Alarms reviewed by R. N. 8:53:16 Sharps counted by scrub and verified by R.N. 8:53:21 Use device set Femoral Dx 8:53:22 Tegaderm 4 x 4 opened to sterile field. 8:53:23 Acist Manifold opened to sterile field. 8:53:23 Acist Hand Control opened to sterile field. 8:53:33 Acist Syringe opened to sterile field. 8:53:34 Bag Decanter opened to sterile field. 8:53:34 Medline Cath Pack opened to sterile field. 8:53:34 Terumo 5Fr Cataldo Sheath opened to sterile field. 8:53:35 St Avila 260cm J .035 wire opened to sterile field. 8:53:36 Diagnostic Infinity 5Fr Multipack catheter opened to sterile field. 8:53:55 Physician arrived 8:53:55 --------ALL STOP TIME OUT------ 8:53:56 Final Timeout: patient, procedure, and site verified with staff and physician. All members of the team are in agreement. 8:53:58 Right groin site verified by team. 8:54:01 Physical assessment completed. ASA score P 2 - A patient with mild systemic disease as per Zac Ratliff MD. 8:54:04 Sedation plan: IV Moderate Sedation Versed, Fentanyl 8:54:17 Versed 0.5 mg I.V. was administered by Bethany Clemens RN; for sedation; 8:54:23 Fentanyl 50 mcg I.V. was administered by Bethany Clemens RN; for sedation; 8:55:49 Zero performed for pressure channel P1 8:56:25 Procedure started. 8:56:25 Full Disclosure recording started 8:56:28 Local anesthetic to right femoral artery with Lidocaine 2% by Zac Ratliff MD.INITIAL ACCESS ONLY 8:56:34 A 5 Fr sheath was inserted into the Right Femoral artery 8:57:11 A Cordis 5Fr Pigtail Catheter (MP) was advanced over the wire and used for Procedure. 8:57:35 LV gram done using AGUDELO 8:57:42 EF : 50 % 8:57:46 Injector settings: Ml/sec: 10, Volume: 20, 8:57:57 Catheter removed. 8:58:02 A Cordis 5Fr JL 4.0 Catheter (MP) was advanced over the wire and used for Procedure. 8:58:16 LCA angiography performed. 8:58:58 Catheter removed. 8:59:01 A Cordis 5Fr 3DRC Catheter (MP) was advanced over the wire and used for Procedure. 9:00:11 RCA angiography performed. 9:01:18 Heparin Bolus 4000 units I.V. was administered by Bethany Clemens RN; for anticoagulation; verified with dr ratliff 9:01:46 Cabot Sci Choice PT Extra Support J 300cm .014 gu opened to sterile field. 9:01:59 Merit BasixCompak Inflation Kit opened to sterile field. 9:02:00 Cordis 6FR XBLAD 4.0 guide catheter opened to sterile field. 9:02:01 Perdue Whisper J 300cm 0.014 guide wire opened to sterile field. 9:02:43 Integrilin (Bolus 2mg/ml) 8.5 ml I.V. was administered by Bethany Clemens RN; for antiplatelet therapy; Wasted 1.5 ml of vial 9:03:07 Catheter removed. 9:03:28 Sheath upsized to a 6 Fr Short. 9:03:35 6 Fr xblad 4 guide catheter was inserted over the wire 9:03:42 pt extra support wire advanced. 9:03:44 Wire advanced across lesion. 9:04:00 Inflation number: 1 A Cabot Sci [place] 1.5 X 20 balloon was prepped and advanced across the Dist LAD, then inflated to 13 EVON for 0:10 (min:sec). 9:04:45 Inflation number: 2 The Cabot Sci [place] 1.5 X 20 balloon was reinflated across the Dist LAD, to 13 EVON for 0:10 (min:sec). 9:05:01 multiple inflations to 13 atms 9:05:09 Inflation number: 3 The Cabot Sci [place] 1.5 X 20 balloon was reinflated across the Dist LAD, to 21 EVON for 0:10 (min:sec). 9:05:35 Inflation number: 4 The Cabot Sci [place] 1.5 X 20 balloon was reinflated across the Dist LAD, to 21 EVON for 0:10 (min:sec). 9:05:47 Balloon removed over the wire. 9:06:20 Lab Result : Hemoglobin 13.6 g/dl 9:06:20 Lab Result : Hematocrit 39.8 % 9:06:20 Lab Result : BUN 18 mg/dl 9:06:20 Lab Result : Creatinine 1.6 mg/dl 9:08:34 Inflation Number: 5 A Slade OTW 2.25 x 22 stent was prepped and advanced across the Dist LAD. The stent was deployed at 13 EVON for 0:10 (min:sec). 9:09:17 Stent catheter was removed intact over wire. 9:09:17 Wire removed. 9:09:18 Guide catheter removed. 9:09:55 Cordis 6Fr Exoseal opened to sterile field. 9:10:03 Sheath removed intact; hemostasis achieved with Exoseal to the Right Femoral artery. 9:10:05 Procedure ended.(Physican Out) 9:11:36 Fluoroscopy time 07.00 minutes. 9:11:40 Fluoroscopy dose: 1044 mGy 9:11:40 Flurop Dose total: 1044 9:13:26 Contrast amount:Isovue 300 129ml. 9:14:51 Sharps counted by scrub and verified by R.N. 9:14:54 Insertion/operative site no bleeding no hematoma. 9:14:56 Post-op/insertion site Right Femoral artery dressed using a 4 x 4 and Tegaderm. 9:15:19 Post right femoral artery:stable, soft, clean and dry 9:15:20 Post Procedure Pulses reassessed and unchanged 9:15:24 Post-procedure physical assessment completed. ASA score P 2 - A patient with mild systemic disease as per Zac Ratliff MD. 9:15:26 Plavix 600 mg P.O. was administered by Bethany Clemens RN; for antiplatelet therapy; 9:15:26 Post procedure rhythm: unchanged. 9:15:28 Estimated blood loss: 10 ml 9:15:30 Post procedure instruction explained to patient.Patient verbalizes understanding. 9:15:32 Patient needs reinforcement of post procedure teaching. 9:15:57 Procedure type changed to Cath procedure, Diagnostic procedure, LHC, LHC w/Coronaries, PCI procedure, Coronary Stent Initial, Miscellaneous Procedures, Moderate Sedation up to 30 minutes 9:17:58 Terumo 6Fr Cataldo Sheath opened to sterile field. 9:20:51 Procedure and supply charges have been captured, reviewed, submitted and are correct. 9:20:52 Vital chart was stopped 9:20:54 Procedure Complication : No complications 9:20:56 See physician's report for complete and final results. 9:20:58 Report given to PCU. 9:21:00 Patient transfered to PCU with Stretcher. 9:21:02 Procedure ended. 9:21:02 Full Disclosure recording stopped 9:21:05 End room use (Document Last) Intervention Summary Intervention Notes Time ActionType Lesion and Equipment Action# Pressure Duration Attributes Used 9:04:00 Inflate Dist LAD Cabot 1 13 00:10 balloon Sci [place] 1.5 X 20 balloon 9:04:45 Reinflate Dist LAD Cabot 2 13 00:10 balloon Sci [place] 1.5 X 20 balloon 9:05:09 Reinflate Dist LAD Cabot 3 21 00:10 balloon Sci [place] 1.5 X 20 balloon 9:05:35 Reinflate Dist LAD Cabot 4 21 00:10 balloon Sci [place] 1.5 X 20 balloon 9:08:34 [address] stent Dist LAD Slade OTW 5 13 00:10 2.25 x 22 stent Device Usage Item Name Manufacture Quantity Catalog Number Hospital Part Current [facility] Lot# / Charge Number Stock Stock Serial# Code Tegaderm 4 3M 1 [id number] [id number] 5 x 4 Acist Acist 1 93657 729362 876924 109188 5 Manifold Medical Systems Inc Acist Hand Acist 1 02478 032896 933505 956402 5 Control Medical Systems Inc Acist Acist 1 54135 245717 753568 521232 20 Syringe Medical Systems Inc Bag Microtek 1 2002S 183672 01650 232207 5 DecJ&V [employer] Medline Cardinal 1 [id number] 723776 17950 767242 5 Cath Pack Health Terumo 5Fr Terumo 1 [id number] 349282 548490 459545 [address] [facility] Avila 1 670811 982488 583390 453922 30 260cm J .035 wire Diagnostic Cardinal 1 [id number] 533149 14096 610383 30 Infinity Health 5Fr Multipack catheter Cordis 5Fr Cardinal 1 [id number] 5 Pigtail Health Catheter (MP) Cordis 5Fr Cardinal 1 743559 5 JL 4.0 Health Catheter (MP) Cordis 5Fr Cardinal 1 347848 5 3DRC Health Catheter (MP) Cabot Sci Cabot 1 [id number] 265132 5 Choice PT Scientific Extra Support J 300cm .014 gu Merit Merit 1 [id number] 007118 001486 878697 15 BasixCompak Medical Inflation Kit Cordis 6FR Cardinal 1 [id number] 550738 344131 185385 3 XBLAD 4.0 Health guide catheter Perdue Perdue 1 [id number] 187183 666427 047811 5 Whisper J Vascular 300cm 0.014 guide wire Cabot Sci Cabot 1 [id number] 000383 426023 667946 1 [id number] Med[employer]ion [employer] Software 1.5 X 20 balloon [place] OTW Medtronic 1 [id number] 980415 41170 127278 5 [id number] 2.25 x 22 stent Cordis 6Fr Cardinal 1 [id number] 307467 431076 617924 10 [employer] Terumo 6Fr Terumo 1 [id number] 536823 147533 884765 40 Cataldo Sheath Signature Audit Rowley Stage Time Signature Unsigned Intra-Procedure 03/06/2017 Fei Fernandez 9:21:25 AM RT(R) Signatures Monitor : Fei Fernandez RT Signature : Date : Time : [place] [id number] [place] [address]
[~2017-03-04 18:46] MED LIST changes: +CARAFATE1 G PO; +OMEPRAZOLE40 MG PO; +PROZAC10 MG PO; +ZOFRAN ODT4 MG/UDTAB PO
[2017-03-04 19:34] LABS: BASOPHILS 0.2 % (0-2); EOSINOPHILS 1.9 % (0-7); HEMATOCRIT 37.6 % (42.0-54.0); HEMOGLOBIN 12.8 g/dL (13.5-17.5); IMMATURE GRANULOCYTES 0.3 % (0-5); LYMPHOCYTES 27.6 % (15-50); MCH 30.5 pg (26.0-34.0); MCV 89.7 fL (80.0-100.0); MONOCYTES 6.6 % (2-11); NEUTROPHILS 63.4 % (40-80); PLATELET COUNT 183 10x3/uL (130-400); RBC 4.19 10x6/uL (4.20-6.10); RDW 14.5 % (11.5-14.5); WBC 9.8 10x3/uL (4.8-10.8)
[2017-03-04 19:50] LABS: ALBUMIN 3.4 g/dL (3.4-5.0); ALKALINE PHOSPHATASE 68 U/L (46-116); ALT (SGPT) 33 U/L (10-68); BILIRUBIN - TOTAL 1.15 mg/dL (0.2-1.3); CALC OSMOLALITY 268 mosm/kg (275-300); CALCIUM 8.7 mg/dL (8.5-10.1); CARBON DIOXIDE 31.6 mmol/L (21.0-32.0); CHLORIDE - SERUM 95 mmol/L (98-107); CREATININE - SERUM 1.4 mg/dL (0.6-1.3); GLUCOSE 136 mg/dL (74-106); SODIUM 133 mmol/L (136-145); UREA NITROGEN 14 mg/dL (7-18); eGFR NON AFRICAN AMERICAN 52 mL/min (90-120)
[2017-03-04 20:01] LABS: CHOL - HDL RATIO 2.6 ratio (2.3-4.9); CHOLESTEROL, TOTAL 113 mg/dL (0-200); CKMB 0.3 U/L (0.0-3.6); CREATINE KINASE 45 UL (21-232); HDL CHOLESTEROL 44 mg/dL (32-96); LDL CHOLESTEROL 54 mg/dL (0-100); LDL-HDL RATIO 1.2 ratio (1.5-3.5); PRO BNP 5277 pg/mL (0-450); TRIGLYCERIDE 76 mg/dL (30-200)
[2017-03-04 20:04] LABS: TROPONIN-I < 0.017 ng/mL (0.000-0.060)
[2017-03-04 21:37] LABS: CREATINE KINASE 42 UL (21-232)
[2017-03-04 21:46] LABS: TROPONIN-I < 0.017 ng/mL (0.000-0.060)
[2017-03-05] VITALS (7 sets, daily range): BP systolic 118–141; BP diastolic 68–88; Ht 188.2 cm; Wt 93.6 kg
--- NOTE | 2017-03-05 03:29 | NUR ---
PT SLEEPING, BED IS LOW, SRX2, BED ALARM IS ON, EKG COMPLETE, WILL CONTINUE PLAN OF CARE
--- NOTE | 2017-03-05 04:01 | NUR ---
COIL MACHINE OPERATOR AT BEDSIDE TO OBTAIN VITALS, CALL LIGHT IN REACH. WILL CONTINUE WITH PLAN OF CARE.
[2017-03-05 05:02] LABS: CKMB 0.4 U/L (0.0-3.6); CREATINE KINASE 43 UL (21-232); TROPONIN-I < 0.017 ng/mL (0.000-0.060)
--- NOTE | 2017-03-05 08:06 | NUR ---
ASSESSMENT DONE. DENIES NEEDS.
[2017-03-05 09:45] LABS: CKMB 0.4 U/L (0.0-3.6); CREATINE KINASE 44 UL (21-232)
[2017-03-05 09:46] LABS: TROPONIN-I < 0.017 ng/mL (0.000-0.060)
--- NOTE | 2017-03-05 10:01 | NUR ---
RESTS WITH EYES CLOSED. AT BS. CALL LIGHT IN REACH. WILL CONT. PLAN OF CARE.
[2017-03-05 16:37] LABS: BASOPHILS 0.2 % (0-2); EOSINOPHILS 1.7 % (0-7); HEMATOCRIT 38.9 % (42.0-54.0); HEMOGLOBIN 13.3 g/dL (13.5-17.5); IMMATURE GRANULOCYTES 0.2 % (0-5); LYMPHOCYTES 30.9 % (15-50); MCH 30.8 pg (26.0-34.0); MCHC 34.2 g/dL (31.0-37.0); MEAN PLATELET VOLUME 10.9 fL (7.4-10.4); PLATELET COUNT 181 10x3/uL (130-400); RBC 4.32 10x6/uL (4.20-6.10); RDW 14.4 % (11.5-14.5); WBC 9.3 10x3/uL (4.8-10.8)
[2017-03-05 16:53] LABS: CARBON DIOXIDE 34.5 mmol/L (21.0-32.0); CREATININE - SERUM 1.6 mg/dL (0.6-1.3); POTASSIUM - SERUM 3.5 mmol/L (3.5-5.1)
--- NOTE | 2017-03-05 17:27 | NUR ---
WITHOUT CHANGES OR DISTRESS NOTED AT THSI TIME. DENIES NEEDS
[2017-03-05 18:08] LABS: HEMOGLOBIN A1C 6.4 % (4.8-6.0)
[2017-03-06] VITALS: BP 120/78
[2017-03-06 05:24] VITALS: BP 141/94
[2017-03-06 06:21] LABS: BASOPHILS 0.2 % (0-2); HEMATOCRIT 39.8 % (42.0-54.0); HEMOGLOBIN 13.6 g/dL (13.5-17.5); IMMATURE GRANULOCYTES 0.3 % (0-5); LYMPHOCYTES 31.6 % (15-50); MCH 30.6 pg (26.0-34.0); MCHC 34.2 g/dL (31.0-37.0); MCV 89.4 fL (80.0-100.0); MEAN PLATELET VOLUME 11.1 fL (7.4-10.4); MONOCYTES 8.2 % (2-11); NEUTROPHILS 57.7 % (40-80); PLATELET COUNT 190 10x3/uL (130-400); RBC 4.45 10x6/uL (4.20-6.10); RDW 14.3 % (11.5-14.5); WBC 10.5 10x3/uL (4.8-10.8)
[2017-03-06 06:38] LABS: ANION GAP 11.4 mmol/L (8-16); CALCIUM 8.8 mg/dL (8.5-10.1); CARBON DIOXIDE 32.2 mmol/L (21.0-32.0); CREATININE - SERUM 1.6 mg/dL (0.6-1.3); POTASSIUM - SERUM 3.6 mmol/L (3.5-5.1)
--- NOTE | 2017-03-06 07:39 | NUR ---
ASSESSMENT DONE. DENIES NEEDS.
[2017-03-06 08:00] VITALS: BP 148/92
--- NOTE | 2017-03-06 08:34 | NUR ---
TO MICROFILM PROCESSOR PER BED
--- NOTE | 2017-03-06 09:25 | NUR ---
IN PRINTING ASSISTANT AT THIS TIME. WILL CONT. PLAN OF CARE.
--- NOTE | 2017-03-06 09:35 | NUR ---
RETURN FROM HEART COORDINATOR PER BED. RT JUAN RAMON DRSG C/D, PULSE PALP
[2017-03-06 11:52] VITALS: BP 130/94
[2017-03-06] MEDS ORDERED: PLAVIX75 MG PO (13:15)
--- NOTE | 2017-03-06 14:29 | NUR ---
DC AND RX GIVEN TO PT
--- NOTE | 2017-03-06 15:28 | NUR ---
DC HOME PER PERSONAL CAR
--- NOTE | 2017-03-06 15:41 | NUR ---
Patient Name: KAMRAN CANELA Admission Status: ER Accout number: [id number] Admission Date: 03-05-2017 : 1935 Admission Diagnosis:SHORTNESS OF BREATH Attending: JOSEF Current LOS: 1 Anticipated DC Date: 03-06-2017 Planned Disposition: Home Primary Insurance: [employer] ADV LATE ENTRY: Discharge Planning Comments: * Is the patient Alert and Oriented? Yes 0 * How many steps to enter\exit or inside your home? 13 0 * PCP DR. QUACH 0 * Pharmacy [facility] [address] * Preadmission Environment Home with Family 0 * ADLs Independent 0 * Equipment Cane 0 * Other Equipment NO MEDICAL EQUIPMENT PROVIDER PREFERENCE 0 * List name and contact numbers for known caregivers / representatives who currently or will assist patient after discharge: NANCY CANELA, SPOUSE, 0 * Community resources currently utilized None 0 * Please name any agencies selected above. NONE 0 * Additional services required to return to the preadmission environment? No 0 * Can the patient safely return to the preadmission environment? Yes 0 * Has this patient been hospitalized within the prior 30 days at any hospital? No 0 CM MET WITH PT IN ROOM TO DISCUSS DISCHARGE PLANNING AND NEEDS. PT REPORTS LIVING AT HOME INDEPENDENTLY WITH HIS SPOUSE. PT USES A [facility] FOR AMBULATION, HAS NO MEDICAL EQUIPMENT PROVIDER PREFERENCE. PT HAS NO OUTSIDE SERVICES ASSISTING IN THE HOME. CM DISCUSSED AVAILABILITY OF HOME HEALTH, REHAB SERVICES AND MEDICAL EQUIPMENT. PT DENIES DISCHARGE NEEDS, REPORTS HIS IS HERE TO PICK HIM UP FOR DISCHARGE HOME NOW. Element Setter: Case Sanders
--- NOTE | 2017-03-13 09:41 | CN ---
PATIENT NAME:KAMRAN CANELA MEDICAL RECORD: [id number] : 37 LOCATION:DPao D.2125 ADMIT DATE: 03/05/17 ACCOUNT: [id number] CONSULTING PHYSICIAN: SARAH COLE MD REFERRING PHYSICIAN: MAYKEL ROBISON MD DATE OF CONSULTATION: 03/05/2017 CARDIOLOGY CONSULTATION DIAGNOSES: 1. Shortness of breath. 2. Dyspnea on exertion. 3. Angina. 4. Coronary artery disease. 5. Previous percutaneous transluminal coronary angioplasty stent. 6. Atrial fibrillation, chronic. 7. Mitral regurgitation, severe. 8. Hyperlipidemia. HISTORY OF PRESENT ILLNESS: This is a gentleman known to us with hyperlipidemia, mitral regurgitation, chronic atrial fibrillation and coronary artery disease. He is having the same symptomatology, had prior to the stent that was done in September by Dr. Shepherd. This was a bare metal stent to the right coronary. Shortness of breath as well as chest heaviness, chest pressure, he as well has severe mitral regurgitation for mitral valve prolapse, chronic atrial fibrillation. His rate controlled with sotalol for the atrial fibrillation. Heart rate has been in the 80-100 range with the atrial fibrillation. PHYSICAL EXAMINATION: GENERAL APPEARANCE: Well-nourished, well-developed, appears stated age. Level of distress, comfortable. PSYCHIATRIC: Mental status, alert, normal affect. Orientation, oriented to time, place and person. EYES: Lids and conjunctiva, noninjected. No discharge, no pallor. ENT: Lips, teeth, gums, normal dentition. Oropharynx, no cyanosis, no pallor. NECK: Carotid arteries, bilateral normal upstroke, no bruits, no thrills. JUGULAR VEINS: No jugular venous pressure or distention. CERVICAL LYMPH NODES: Nontender, nonenlarged. THYROID: Not enlarged. Nontender. No nodules. LUNGS: Respiratory effort, unlabored. CHEST: Normal curvature. No thoracic deformity. No chest wall tenderness. Percussion, resonant. Auscultation, clear. No wheezes, no rales, no rhonchi. CARDIOVASCULAR: Heart irregularly irregular with atrial fibrillation. EXTREMITIES: No cyanosis, no edema. Peripheral pulses, full and equal in all extremities, except as noted. No bruits appreciated. ABDOMEN: Soft, nondistended. Normal aorta. No bruit. Nontender. No masses. Liver, nontender, no hepatomegaly. Spleen, nontender, no splenomegaly. MUSCULOSKELETAL: No joint tenderness. No joint swelling. No erythema. NEUROLOGICAL: Normal gait, normal strength, normal tone. SKIN: Warm and dry. OVERALL IMPRESSION: Heart rate is controlled overall. Since he has been in the hospital, has been in the 70s, I do not think he needs additional AV blocking medications, but we will repeat coronary angiography. Further care depends upon the findings of the angiography. CONSULT REPORT [id number] KAMRAN CANELA TRANSINT:[id number] Voice Confirmation ID: [id number] DOCUMENT ID: [id number] SARAH COLE MD at 0941 CC: [id number] DICTATION DATE: 03/05/17 1515 CENTRAL OFFICE MECHANIC: 03/05/172008 DIS IN 03/06/17 [facility] [address] [place] [address]
--- NOTE | 2017-03-13 09:42 | OP ---
PATIENT NAME: KAMRAN CANELA MEDICAL RECORD: [id number] :37 LOCATION:D.M2 D.2125 ADMISSION DATE:03/05/17 SURGEON: SARAH COLE MD DATE OF OPERATION: 03/06/2017 PROCEDURES: 1. PTCA stent LAD. 2. Left heart catheterization. 3. Selective coronary angiography. 4. Left ventriculogram. INDICATION: Unstable angina. PROCEDURE IN DETAIL: After informed consent was obtained and after detailed explanation of risks, benefits as well as alternative therapies, the patient elected to proceed with angiogram and angioplasty. The right femoral area was prepped and draped in normal sterile fashion. Right femoral artery was cannulated via modified Seldinger technique with placement of 6-Faroese sheath. All catheters exchanged through this sheath. FINDINGS: Left ventriculogram was performed in standard 30-degree AGUDELO view, reveals preserved cardiac wall motion, ejection fraction 50%. SELECTIVE CORONARY ANGIOGRAPHY: 1. Left main showed no significant angiographic disease. 2. Left anterior descending has a diagonal that is closed, this is a chronic total occlusion, this has been closed since the September catheterization. Otherwise, the LAD has only mild irregularities, but no flow-limiting stenosis. 3. The left circumflex has mild irregularities, but no flow-limiting stenosis. 4. The right coronary artery has previously placed stent. This is widely patent with no significant restenosis. No disease elsewise throughout the RCA or its branches. PTCA STENT OF THE LAD DIAGONAL: We are able to traverse the total occlusion with a 1.5 balloon. Stenting was undertaken with a 2.25 x 22 mm [place]. Result was 0% residual stenosis. OVERALL IMPRESSION: Successful percutaneous transluminal coronary angioplasty stent of the left anterior descending diagonal going from 100% initial stenosis chronic total occlusion to 0% residual stenosis. TRANSINT:[id number] Voice Confirmation ID: [id number] DOCUMENT ID: [id number] SARAH COLE MD at 0942 CC: [id number] DICTATION DATE: 03/06/17 0916 [place] [facility] [place] FORMER: 03/06/17 1239 DIS IN 03/06/17 [place] [address]
== END 2017-03-06 15:29 | disposition home or self-care (01) | DRG 246 ==
LOC: D.ER 18:46 → OBSVTIME 21:19 → D.M2 21:19
PROVIDERS: Emergency Medicine; Family Medicine; Internal Medicine Interventional Cardiology; ADMIT Family Medicine
PROC: B2111ZZ Fluoroscopy of Multiple Coronary Arteries using Low Osmolar Contrast (ICD-10-PCS; 2017-03-06)
PROC: B2151ZZ Fluoroscopy of Left Heart using Low Osmolar Contrast (ICD-10-PCS; 2017-03-06)
PROC: 027034Z Dilation of Coronary Artery, One Artery with Drug-eluting Intraluminal Device, Percutaneous Approach (ICD-10-PCS; principal; 2017-03-06 08:00)
PROC: 4A023N7 Measurement of Cardiac Sampling and Pressure, Left Heart, Percutaneous Approach (ICD-10-PCS; 2017-03-06 08:00)
DX: I25.110 Atherosclerotic heart disease of native coronary artery with unstable angina pectoris (principal); I50.31 Acute diastolic (congestive) heart failure; Z95.5 Presence of coronary angioplasty implant and graft; E78.5 Hyperlipidemia, unspecified; Z86.73 Personal history of transient ischemic attack (TIA), and cerebral infarction without residual deficits; E11.65 Type 2 diabetes mellitus with hyperglycemia; I34.0 Nonrheumatic mitral (valve) insufficiency; I48.2 Chronic atrial fibrillation

== ENCOUNTER 2017-04-04 21:23 | Emergency (ER) | payer MEDICARE ==
[2017-03-05 14:19] VITALS: BMI 26.4
[2017-04-04 22:02] LABS: BASOPHILS 0.1 % (0-2); EOSINOPHILS 1.1 % (0-7); HEMATOCRIT 35.2 % (42.0-54.0); HEMOGLOBIN 12.2 g/dL (13.5-17.5); IMMATURE GRANULOCYTES 0.5 % (0-5); LYMPHOCYTES 22.1 % (15-50); MCH 30.4 pg (26.0-34.0); MCHC 34.7 g/dL (31.0-37.0); MCV 87.8 fL (80.0-100.0); MONOCYTES 9.1 % (2-11); NEUTROPHILS 67.1 % (40-80); PLATELET COUNT 189 10x3/uL (130-400); RBC 4.01 10x6/uL (4.20-6.10); WBC 11.4 10x3/uL (4.8-10.8)
[2017-04-04 22:03] LABS: APPEARANCE CLEAR (CLEAR); BILIRUBIN NEGATIVE (NEGATIVE); COLOR YELLOW (YELLOW); GLUCOSE NEGATIVE (NEGATIVE); KETONE NEGATIVE (NEGATIVE); LEUKOCYTE ESTERASE NEGATIVE (NEGATIVE); NITRITE NEGATIVE (NEGATIVE); PROTEIN TRACE mg/dL (NEGATIVE); UROBILINOGEN NORMAL (NORMAL)
[2017-04-04 22:14] LABS: WHITE CELLS - URINE 0-5 /hpf (0-5)
[2017-04-04 22:15] LABS: BACTERIA FEW /hpf (NONE SEEN); EPITHELIAL CELLS 0-5 /hpf (0-5); HYALINE CAST RARE /lpf (NONE SEEN)
[2017-04-04 22:18] LABS: ALBUMIN 3.4 g/dL (3.4-5.0); ANION GAP 12.5 mmol/L (8-16); BILIRUBIN - TOTAL 0.72 mg/dL (0.2-1.3); CALCIUM 8.8 mg/dL (8.5-10.1); CARBON DIOXIDE 27.2 mmol/L (21.0-32.0); CREATININE - SERUM 1.4 mg/dL (0.6-1.3); POTASSIUM - SERUM 3.7 mmol/L (3.5-5.1); PROTEIN - SERUM 7.1 g/dL (6.4-8.2)
== END 2017-04-05 01:10 | disposition home or self-care (01) ==
LOC: D.ER 21:23
PROVIDERS: Family Medicine
DX: R10.9 Unspecified abdominal pain (principal); I48.2 Chronic atrial fibrillation; I10 Essential (primary) hypertension

== ENCOUNTER 2017-04-07 10:21 | Inpatient (IN) | payer MEDICARE ==
[2017-04-07 11:05] LABS: BASOPHILS 0 % (0-2); EOSINOPHILS 0.1 % (0-7); HEMATOCRIT 34.8 % (42.0-54.0); HEMOGLOBIN 12.3 g/dL (13.5-17.5); IMMATURE GRANULOCYTES 0.6 % (0-5); LYMPHOCYTES 17.3 % (15-50); MCH 30.2 pg (26.0-34.0); MCHC 35.3 g/dL (31.0-37.0); MCV 85.5 fL (80.0-100.0); MEAN PLATELET VOLUME 11.5 fL (7.4-10.4); MONOCYTES 7.7 % (2-11); NEUTROPHILS 74.3 % (40-80); PLATELET COUNT 185 10x3/uL (130-400); RBC 4.07 10x6/uL (4.20-6.10); RDW 14.9 % (11.5-14.5); WBC 10.6 10x3/uL (4.8-10.8)
[2017-04-07 11:43] LABS: ALBUMIN 3.6 g/dL (3.4-5.0); ALKALINE PHOSPHATASE 81 U/L (46-116); ALT (SGPT) 75 U/L (10-68); CALC OSMOLALITY 253 mosm/kg (275-300); CALCIUM 8.8 mg/dL (8.5-10.1); CARBON DIOXIDE 27.3 mmol/L (21.0-32.0); CREATINE KINASE 92 UL (21-232); CREATININE - SERUM 1.4 mg/dL (0.6-1.3); GLUCOSE 203 mg/dL (74-106); POTASSIUM - SERUM 3.9 mmol/L (3.5-5.1); PRO BNP 13137 pg/mL (0-450); PROTEIN - SERUM 7.1 g/dL (6.4-8.2); SODIUM 121 mmol/L (136-145); TROPONIN-I < 0.017 ng/mL (0.000-0.060); UREA NITROGEN 25 mg/dL (7-18); eGFR NON AFRICAN AMERICAN 52 mL/min (90-120)
[2017-04-07 11:49] LABS: CHLORIDE - SERUM 85 mmol/L (98-107)
[2017-04-07 12:08] LABS: AMORPHOUS SEDIMENT >1+ /lpf (NONE SEEN); APPEARANCE CLEAR (CLEAR); BACTERIA FEW /hpf (NONE SEEN); BILIRUBIN NEGATIVE (NEGATIVE); COLOR YELLOW (YELLOW); EPITHELIAL CELLS RARE /hpf (0-5); GLUCOSE NEGATIVE (NEGATIVE); KETONE NEGATIVE (NEGATIVE); NITRITE NEGATIVE (NEGATIVE); PROTEIN 1+ mg/dL (NEGATIVE); RED CELLS - URINE 0-5 /hpf (0-5); UROBILINOGEN NORMAL (NORMAL); WHITE CELLS - URINE OCC /hpf (0-5)
[2017-04-07 16:59] VITALS: BP 143/90; BMI 29.6
[2017-04-07 17:05] VITALS: BP 143/102
--- NOTE | 2017-04-07 17:17 | NUR ---
PT ON FLOOR WITH AT BEDSIDE. ADMISSION WORKUP COMPLETED. PT IS CONFUSED BUT ORIENTED TO SELF. UNABLE TO TELL YEAR, PLACE OR SITUATION. APPLIED SCDS BILATERALLY ORDERED FOR DVT PROPHYLACTICS AND THEN ELEVATED BILAT FEET ON PILLOW TO HELP REDUCE SWELLING. PT WAS SAID TO HAVE LEFT SIDED WEAKNESS BUT I DID NOT NOTICE ANY. 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 PT SITTING UP READY TO EAT DINNER. PT DENIES ANY CURRENT PAIN OR NEEDS AT THIS TIME. CL IN REACH, BED IN LOWEST, SIDE RAILS X2 AND BUILT IN BED ALARM ON. WILL CPOC.
--- NOTE | 2017-04-07 18:20 | NUR ---
PT RESTING QUIETLY IN BED WITH AT BEDSIDE. PT ATE DINNER WITHOUT ANY DIFFICULTIES IN SWALLOWING. UNABLE TO START PTS HYPERTONIC FLUID R/T PHARMACY NOT HAVING IT AVAILABLE. WILL WAIT ON PHARMACY AND CPOC.
[2017-04-07 19:00] VITALS: BP 110/86
--- NOTE | 2017-04-07 19:15 | NUR ---
ALERT/AWAKE ORIENTED TO PERSON AND HOSPITAL. HIS IS PRESENT IN ROOM. ASSESSMENTS COMPLETED. NO NEEDS OR DISCOMFORTS VOICED.
--- NOTE | 2017-04-07 23:00 | NUR ---
CONSTANTLY FRANKERS, PULLING ON TELEMETRY LEADS, IV, TRYING TO GET OUT OF BED. CALLED HILARY VARGAS APN DIRECTOR [place]ARK FOR MEDICATION ORDER FOR HIS AGITATION.
--- NOTE | 2017-04-07 23:43 | NUR ---
RECEIVED ORDER FROM HILARY VARGAS APN FOR ATIVAN 0.25MG IV Q8H PRN FOR PATIENT'S AGITATION.
[2017-04-08] VITALS: BP 130/83
--- NOTE | 2017-04-08 00:56 | NUR ---
IS MORE CALM. ADMIN SCHED MEDS. TOOK ORAL MED WITH SIPS OF WATER, SWALLOWING WITHOUT DIFFICULTY. TELEMETRY SHOWS 72 CAFIB. LEFT DOOR OPEN TO MONITOR CLOSELY.
[2017-04-08 04:37] VITALS: BP 145/97
[2017-04-08 04:54] LABS: BASOPHILS 0 % (0-2); EOSINOPHILS 0 % (0-7); HEMOGLOBIN 12.5 g/dL (13.5-17.5); IMMATURE GRANULOCYTES 0.4 % (0-5); MCHC 34.7 g/dL (31.0-37.0); MCV 86.5 fL (80.0-100.0); MEAN PLATELET VOLUME 11.6 fL (7.4-10.4); NEUTROPHILS 75.6 % (40-80); PLATELET COUNT 165 10x3/uL (130-400); RBC 4.16 10x6/uL (4.20-6.10); RDW 15.1 % (11.5-14.5); WBC 12.1 10x3/uL (4.8-10.8)
[2017-04-08 05:46] LABS: ALBUMIN 3.6 g/dL (3.4-5.0); BILIRUBIN - TOTAL 1.5 mg/dL (0.2-1.3); CALCIUM 8.9 mg/dL (8.5-10.1); CARBON DIOXIDE 24.9 mmol/L (21.0-32.0); CREATININE - SERUM 1.7 mg/dL (0.6-1.3); POTASSIUM - SERUM 4.2 mmol/L (3.5-5.1); PROTEIN - SERUM 6.7 g/dL (6.4-8.2)
[2017-04-08 05:47] LABS: ANION GAP 25.3 mmol/L (8-16)
--- NOTE | 2017-04-08 06:27 | NUR ---
ADMIN ATIVAN 0.25MG IV FOR CONTINUOUSLY HOLLERING, TRYING TO GET OUT OF BED, PULLING ON IV AND PULLING OFF GOWN AND TELEMETRY. HIS CALLED AND EXPLAINED SITUATION AND SHE STATED SHE WILL STAY WITH HIM TODAY AND TONIGHT.
--- NOTE | 2017-04-08 08:06 | NUR ---
AM ROUNDS COMPLETED. PT SITTING UP ON EDGE OF BED TRYING TO GET OUT OF BED. PT HAS PULLED OUT HIS IV. PT STATES IT WAS HURTING HIM IS WHY. PT IS ALERT AND ORIENTED TO PERSON, PLACE BUT NOT SITUATION OR TIME. REORIENTED PT AND ASSISTED HIM UP IN BED AND PLACED MARYAN ALARM UNDER HIM AND BUILT IN BED ALARM ON. REAPPLIED SCDS BILATERALLY. TELEMETRY AND GOWN REPLACED. WILL CONTINUE WITH PLAN OF CARE AND REPLACE PIV. CL IN REACH, BED IN LOWEST, SIDE RAILS X2. WILL CPOC.
[2017-04-08 08:42] VITALS: BP 141/87
--- NOTE | 2017-04-08 11:25 | NUR ---
20 GUAGE PIV INSERTED
--- NOTE | 2017-04-08 11:46 | NUR ---
INITIATED PTS IV FLUID 3% NS @15ML/HR FOR ONE BAG OF 500ML. PT WAS SUPPOSE TO RECIEVE IT LAST NIGHT BUT DIDNT. 20 GUAGE X1 STICK PLACED TO HIS R.AC DRSG CDI AND SWAB CAPS IN USE. PT RESTING IN BED NOW DENIES ANY CURRENT PAIN OR NEEDS. WILL CPOC.
[2017-04-08 12:40] VITALS: BP 120/80
--- NOTE | 2017-04-08 13:00 | NUR ---
PT SITTING UP IN BEDSIDE CHAIR RESTING QUIETLY WITH EYES CLOSED. AT BEDSIDE. NO S/S OF DISTRESS OR ANY CURRENT NEEDS NOTED AT THIS TIME. CL IN REACH. WILL CPOC.
[2017-04-08 13:57] VITALS: BMI 29.5
--- NOTE | 2017-04-08 14:46 | NUR ---
PTS TELEMETRY WAS OFF. REPOSITIONED AND PLACED ELECTRODES BACK. PT RUNNING CONTROLLED A.FIB AT 89. PT SITTING UP IN BEDSIDE CHAIR AND DENIES ANY CURRENT NEEDS. WILL CPOC.
--- NOTE | 2017-04-08 14:59 | NUR ---
NOTIFIED HILARY VARGAS APN TO RESTART PTS HOME MEDS. HOME MED LIST WAS RECONCILED BY ME YESTERDAY AND ARE THE CORRECT DOSAGES.
--- NOTE | 2017-04-08 17:27 | NUR ---
LAB CALLED AND UNABLE TO COLLECT BLOOD DRAW R/T NOT BEING ABLE TO GET A VEIN. WENT IN PTS ROOM AND COLLECTED BLOOD DRAW VIA L.AC X1 STICK AND SENT TUBES TO LAB. D/C PTS IV FLUID ORDERED AND PT IS NOW SL TO HIS R.AC PIV. PT SITTING UP IN BED EATING DINNER DENIES ANY CURRENT PAIN OR NEEDS. CL IN REACH, FAMILY AT BEDSIDE. WILL CPOC.
[2017-04-08 17:38] LABS: CALCIUM 9.2 mg/dL (8.5-10.1); CARBON DIOXIDE 30.8 mmol/L (21.0-32.0); CREATININE - SERUM 1.6 mg/dL (0.6-1.3)
[2017-04-08 17:44] LABS: ANION GAP 11.7 mmol/L (8-16); POTASSIUM - SERUM 3.5 mmol/L (3.5-5.1)
--- NOTE | 2017-04-08 17:47 | NUR ---
LAB CALLED FOR CRITICAL LAB OF 83. NO ACTION REQUIRED. DOCTORS AWARE AND LABS ARE GETTING BETTER.
--- NOTE | 2017-04-08 19:42 | NUR ---
ALERT/AWAKE ORIENTED TO NAME, PLACE. ASSISTED TO BSC FOR BM. ASSISTED BACK TO BED. ASSESSMENTS COMPLETED. HIS IS STAYING WITH HIM TONIGHT.
[2017-04-08 20:27] VITALS: BP 141/90
--- NOTE | 2017-04-08 22:45 | NUR ---
REC ORDER FROM HILARY VARGAS APN TO GIVE TRAMADOL 50MG PO PRN FOR BACK PAIN. PATIENT CONTINUALLY HOLLERS ABOUT HIS BACK PAIN REQUESTING TO BE REPOSITIONED MULTIPLE TIMES.
--- NOTE | 2017-04-09 00:30 | NUR ---
RESTING QUIETLY IN BED. RR 16 EVEN U/L. NO S/S OF PAIN OR DISCOMFORT. HIS IS PRESENT IN ROOM.
[2017-04-09 04:00] VITALS: BP 161/86
--- NOTE | 2017-04-09 06:00 | NUR ---
RESTING QUIETLY. NO S/S OF DISCOMFORT. HIS IS PRESENT IN ROOM.
[2017-04-09 06:16] LABS: BASOPHILS 0 % (0-2); EOSINOPHILS 0.2 % (0-7); HEMATOCRIT 33.2 % (42.0-54.0); HEMOGLOBIN 11.7 g/dL (13.5-17.5); IMMATURE GRANULOCYTES 0.5 % (0-5); LYMPHOCYTES 16.4 % (15-50); MCH 30.4 pg (26.0-34.0); MCHC 35.2 g/dL (31.0-37.0); MCV 86.2 fL (80.0-100.0); MEAN PLATELET VOLUME 11.8 fL (7.4-10.4); NEUTROPHILS 72.9 % (40-80); PLATELET COUNT 157 10x3/uL (130-400); RBC 3.85 10x6/uL (4.20-6.10); RDW 15.1 % (11.5-14.5); WBC 11.6 10x3/uL (4.8-10.8)
[2017-04-09 06:50] LABS: ALBUMIN 3.4 g/dL (3.4-5.0); BILIRUBIN - TOTAL 1.6 mg/dL (0.2-1.3); CARBON DIOXIDE 29.9 mmol/L (21.0-32.0); CREATININE - SERUM 1.6 mg/dL (0.6-1.3); POTASSIUM - SERUM 3.7 mmol/L (3.5-5.1); PROTEIN - SERUM 5.9 g/dL (6.4-8.2)
[2017-04-09 06:53] LABS: ANION GAP 12.8 mmol/L (8-16)
[2017-04-09 07:53] VITALS: BP 142/92
--- NOTE | 2017-04-09 07:57 | NUR ---
ROUNDING DONE WITH PATIENT SITTING ON SIDE OF BED WITH AT BEDSIDE. RIGHT AC SEEN WITH SALINE LOCK. ON HEART MONITOR SHOWING CAF, HR 76. PATIENT KNOWS HIS NAME AND THAT IS ALL AT PRESENT TIME. ON ROOM AIR. PATIENT HAS A STUDENT NURSE TODAY AND I WILL CONTINUE PRIMARY. WILL MONITOR.
--- NOTE | 2017-04-09 12:14 | NUR ---
PER DR CHASE, WHEN PATIENT IS TAKING SAMSCA HE IS NOT ON THE FLUID RESTRICTION LONG HE TAKES THE MEDICATION.
[2017-04-09 12:33] VITALS: BP 131/89
[2017-04-09 16:49] VITALS: BP 128/92
--- NOTE | 2017-04-09 17:09 | NUR ---
PATIENT IS CONSTANTLY UP AND DOWN WITH TRYING TO GET COMFORTABLE EVEN THOUGH NORCO WAS GIVEN. FEMALE MEMBER IN ROOM (NOT ) IS ASKING FOR ME TO SEDATE HIM, I TOLD HER NO. PATIENT IS SITTING ON THE SIDE OF THE BED EATING SUPPER. WILL MONITOR.
--- NOTE | 2017-04-09 19:20 | NUR ---
Received patient in room sitting up in chair, in room with patient. PIV in right AC is SL. No complaints of pain or discomfort at this time. Alert and oriented to person and place, not to time and situation. states he is more confused later in the day.
[2017-04-09 20:30] VITALS: BP 133/94
--- NOTE | 2017-04-09 22:00 | NUR ---
Given Zofran IV for nausea. Will monitor for effectiveness.
--- NOTE | 2017-04-09 22:30 | NUR ---
Zofran effective, patient reports no longer feeling nauseated.
--- NOTE | 2017-04-09 22:36 | NUR ---
Given [place] tab for complaints of back pain. Assisted back into bed with two person assist using walker. Refusing SCDs at this time. Refusing to wear hospital gown at this time, in underwear covered by a sheet. remains at bedside.
--- NOTE | 2017-04-09 23:00 | NUR ---
Patient reports no pain at this time, resting comfortably in bed with SCDs on. Analgesic given earlier effective.
--- NOTE | 2017-04-09 23:43 | NUR ---
Patient is upset, sitting at side of bed, paranoid, delusional, asking his to go measure chickens and suspicious of nursing staff. Given Geodon 20mg po PRN at this time. Awaiting effectiveness, refusing to get back into bed. Angry, easily agitated.
--- NOTE | 2017-04-10 00:30 | NUR ---
No effect as of yet from Geodon given earlier, still sitting at edge of bed hanging onto side rail. Refuses to lie down. Less agitated, but still oppositional. is repeatedly trying to encourage patient to lie down.
--- NOTE | 2017-04-10 01:15 | NUR ---
Finally patient is resting quietly in bed. at bedside.
--- NOTE | 2017-04-10 02:37 | NUR ---
Patient is again yelling out, "Nurse, Nurse" is confused wants to get up to get into bed. Attempted several times to inform patient that he was already in bed but refuses to listen, does not comprehend. SCDs removed due to patient's extreme agitation and potential danger from falling as repeatedly swings his legs out of bed.
[2017-04-10 04:00] VITALS: BP 133/88
--- NOTE | 2017-04-10 04:51 | NUR ---
Patient has been up sitting in chair for half hour. Sipping on cup of coffee, not yelling at this time. is requesting that patient be given his pain medication and be assisted back to bed. Given [place] tab PRN. Assisted into bed using walker and staff assist.
--- NOTE | 2017-04-10 05:30 | NUR ---
Resting quietly, analgesic effective.
[2017-04-10 07:06] LABS: BASOPHILS 0 % (0-2); EOSINOPHILS 0.4 % (0-7); HEMATOCRIT 34.7 % (42.0-54.0); HEMOGLOBIN 12.2 g/dL (13.5-17.5); IMMATURE GRANULOCYTES 0.6 % (0-5); LYMPHOCYTES 17.1 % (15-50); MCH 30.2 pg (26.0-34.0); MCHC 35.2 g/dL (31.0-37.0); MCV 85.9 fL (80.0-100.0); MEAN PLATELET VOLUME 11.6 fL (7.4-10.4); MONOCYTES 8.2 % (2-11); NEUTROPHILS 73.7 % (40-80); PLATELET COUNT 165 10x3/uL (130-400); RBC 4.04 10x6/uL (4.20-6.10); RDW 15.2 % (11.5-14.5)
[2017-04-10 07:07] LABS: WBC 15.2 10x3/uL (4.8-10.8)
[2017-04-10 07:49] LABS: ALBUMIN 3.3 g/dL (3.4-5.0); BILIRUBIN - TOTAL 2.09 mg/dL (0.2-1.3); CALCIUM 8.5 mg/dL (8.5-10.1); CARBON DIOXIDE 29.2 mmol/L (21.0-32.0); CREATININE - SERUM 1.6 mg/dL (0.6-1.3); POTASSIUM - SERUM 3.5 mmol/L (3.5-5.1); PROTEIN - SERUM 6.7 g/dL (6.4-8.2)
[2017-04-10 07:52] LABS: ANION GAP 12.3 mmol/L (8-16)
--- NOTE | 2017-04-10 07:57 | NUR ---
AT BEDSIDE, MARYAN AND BED ALARM IN USE. PATIENT IS WANTING TO GET UP WITH WALKER BUT IS VERY SLEEPY. ASSISTED BACK TO BED X 2 PEOPLE. RIGHT AC SEEN WITH SALINE LOCK. ON ROOM AIR. BILATERAL LOWER LEGS WITH 3+/PITTING EDEMA. BRUISING SEEN TO GROIN AREA, RIGHT LOWER ABD. AREA, RIGHT HAND AND WRIST, AND TO RIGHT TOP OF FOOT AND TOES FROM RECENT FALL AT HOME. WILL CONTINUE TO MONITOR FOR SAFETY.
[2017-04-10 08:57] VITALS: BP 131/83
[2017-04-10 11:17] LABS: HEPATITIS C ANTIBODY <0.1 (0.0-0.9)
--- NOTE | 2017-04-10 13:14 | NUR ---
ASSSITED BACK TO BED X 3 PEOPLE. PATIENT IS VERY CONFUSED. CALL PLACED TO ANABELLE URBINA APN TO SEE WHAT ELSE WE CAN DO FOR HIS LOW SODIUM PATIENT IS NOT WANTING TO EAT OR DRINK. AWAITING CALL BACK. 1 CONTAINER OF APPLE JUICE GIVEN WITH SOME SALT IN IT. BED ALARM AND MARYAN ALARM IS ON.
--- NOTE | 2017-04-10 13:26 | NUR ---
PATIENT DRANK ANOTHER APPLE JUICE WITH SALT.
--- NOTE | 2017-04-10 13:46 | NUR ---
RD F/U chart reviewed and pt visited Pt reported some nausea this morning, otherwise couldn't answer questions secondary to unable to get comfortable wanted up in bed more, hollering out. at bed side. Nursing note reviewed noted pt did not want to eat or drink, decreased sodium though did not want to drink apple juice with salt in it. Noted to have 3+lower leg edema. Diet: Renal ADA PO:61% avg X 7 melas Meds: docusate, carafate, kcl Labs: NA 117, BUN 30 creat 1.6 Skin: multiple burising and swelling Marciano 17 WT: 04/10-220, 04/09-225.9, 04/08-231 Fair intake with hyponatremia, on renal diet, weight appears to be trending down with MD noted questioning accuracy secondary to edematous. MD may want to consider fluid restriction and regular diet for a few days secondary to sodium level low and edema to attempt to bring sodium levels up if they do now start trending up No nutritional changes at this time without MD input. PLAN: RD to continue to follow.
[2017-04-10 15:56] LABS: CALCIUM 8.7 mg/dL (8.5-10.1); CREATININE - SERUM 1.6 mg/dL (0.6-1.3); POTASSIUM - SERUM 3.3 mmol/L (3.5-5.1)
[2017-04-10 16:04] LABS: ANION GAP 8.3 mmol/L (8-16)
--- NOTE | 2017-04-10 16:09 | NUR ---
1 CONTAINER OF APPLE JUICE MIXED WITH 1 SALT PACKAGE GIVEN TO PATIENT AGAIN.
--- NOTE | 2017-04-10 16:15 | NUR ---
TO MRI VIA STRETCHER
--- NOTE | 2017-04-10 16:46 | NUR ---
RETURNS FROM RADIOLOGY, UNABLE TO TOLERATE MRI. CALL PLACED TO PAYAL EUGENE TO LET HER BE AWARE OF THIS. AWAITING CALL BACK.
--- NOTE | 2017-04-10 16:49 | NUR ---
CALL RECEIVED BACK FROM PAYAL EUGENE TO LET HER KNOW THAT MRI COULD NOT BE DONE. SHE SAYS THAT SHE WILL RE-EVALATE IT TOMORROW.
--- NOTE | 2017-04-10 18:25 | NUR ---
SITTING ON SIDE OF BED WITH FAMILY AT BEDSIDE. WILL CONTINUE TO MONITOR.
[2017-04-10 19:00] VITALS: BP 154/87
--- NOTE | 2017-04-10 19:20 | NUR ---
RECEIVED REPORT, WILL ASSUME CARE OF PT, BED ALARM IS ON, AT BED SIDE, CALL LIGHT IN REACH, WILL CONTINUE PLAN OF CARE
[2017-04-10 22:16] LABS: ANION GAP 12.1 mmol/L (8-16); CALCIUM 8.8 mg/dL (8.5-10.1); CARBON DIOXIDE 30.5 mmol/L (21.0-32.0); CREATININE - SERUM 1.5 mg/dL (0.6-1.3); POTASSIUM - SERUM 3.6 mmol/L (3.5-5.1)
[2017-04-11] VITALS: BP 148/109
--- NOTE | 2017-04-11 01:48 | NUR ---
RESTING WITH EYES CLOSED. RR EVEN U/L. NO S/S OF DISCOMFORT. CL IN REACH.
--- NOTE | 2017-04-11 03:15 | NUR ---
ASSESSMENT COMPLETE, SEE FLOW SHEET, PT SLEEPING, MARYAN ALARM IS ON, CALL LIGHT IN REACH, WILL CONTINUE PLAN OF CARE
[2017-04-11 04:00] VITALS: BP 148/86
[2017-04-11 04:51] LABS: BASOPHILS 0.1 % (0-2); EOSINOPHILS 0.1 % (0-7); HEMATOCRIT 35.5 % (42.0-54.0); HEMOGLOBIN 12.3 g/dL (13.5-17.5); IMMATURE GRANULOCYTES 0.5 % (0-5); LYMPHOCYTES 15.5 % (15-50); MCH 30.1 pg (26.0-34.0); MCHC 34.6 g/dL (31.0-37.0); MCV 86.8 fL (80.0-100.0); MEAN PLATELET VOLUME 11.7 fL (7.4-10.4); MONOCYTES 8.7 % (2-11); NEUTROPHILS 75.1 % (40-80); PLATELET COUNT 150 10x3/uL (130-400); RBC 4.09 10x6/uL (4.20-6.10); RDW 15.3 % (11.5-14.5); WBC 14.1 10x3/uL (4.8-10.8)
[2017-04-11 05:22] LABS: ALBUMIN 3.3 g/dL (3.4-5.0); BILIRUBIN - TOTAL 2.26 mg/dL (0.2-1.3); CARBON DIOXIDE 30.8 mmol/L (21.0-32.0); CREATININE - SERUM 1.6 mg/dL (0.6-1.3); POTASSIUM - SERUM 4.4 mmol/L (3.5-5.1); PROTEIN - SERUM 6.5 g/dL (6.4-8.2)
[2017-04-11 05:23] LABS: ANION GAP 9.6 mmol/L (8-16)
--- NOTE | 2017-04-11 07:20 | NUR ---
PT LAYING TO LEFT SIDE SLEEPING AT BEDSIDE. ADOLESCENT SPECIALIST STAFF CLAIMS PT WAS UP ALL NIGHT SCREAMING AND YELLING FOR HIS . SHE IS HERE NOW AND PT SEEMS TO BE RESTING. WILL CONT TO MONITOR
[2017-04-11 08:57] VITALS: BP 140/100
--- NOTE | 2017-04-11 10:43 | NUR ---
PT IS VERY RESTLESS THRASHING ABOUT IN BED. PT DID NOT SLEEP LAST NIGHT, HAS DARK CIRCLES UNDER EYES, STILL VERY CONFUSED. PT CLAIMS HE IS TIRED BUT SAYS HE DOESNT SLEEP MORE THAN 2 MINUTES AT A TIME. PT IS DESPARATE AND REQUESTIG FOR HIM TOHAVE SOMETHING TO SLEEP TODAY AND TONIGHT. RENAL GROUP ADDED RESTORIL FOR TONIGHT. WILL ASK PRIMARY GROUP FOR SOMETHING TO HELP WITH HIS RESTLESS/ANXIETY FOR TODAY TO HELP HIM REST. PT WAS ORDERED TO HAVE A BP PILL THAT IS NOT ON FLOOR. WILL WAIT TO GIVE UNTIL PHARMACY BRINGS IT UP
[2017-04-11 10:47] LABS: ANION GAP 10.4 mmol/L (8-16); CALCIUM 8.6 mg/dL (8.5-10.1); CARBON DIOXIDE 30.9 mmol/L (21.0-32.0); CREATININE - SERUM 1.6 mg/dL (0.6-1.3); POTASSIUM - SERUM 4.3 mmol/L (3.5-5.1)
[2017-04-11 12:54] VITALS: BP 95/71
[2017-04-11 13:46] LABS: ANION GAP 11.5 mmol/L (8-16); CALCIUM 8.9 mg/dL (8.5-10.1); CARBON DIOXIDE 29.7 mmol/L (21.0-32.0); CREATININE - SERUM 1.6 mg/dL (0.6-1.3); POTASSIUM - SERUM 4.2 mmol/L (3.5-5.1)
[2017-04-11 17:11] VITALS: BP 145/101
--- NOTE | 2017-04-11 17:14 | NUR ---
PT LAYING TO LEFT SIDE SLEEPING NO S/S DISTRESS NOTED RR EVEN AND UNLABORED. AT BEDSIDE WILL CONT TO MONITOR
--- NOTE | 2017-04-11 19:45 | NUR ---
PT RESTLESS, ALL OVER THE BED. JUST RECIEVED CARE FOR INCONTINENCE WHILE HIS DAUGHTER WAS STILL WITH HIM. PIV TO RIGHT A/C SALINE LOCKED. BED ALARM ACTIVATED. SEE ASSESSMENT, CPOC.
--- NOTE | 2017-04-11 21:00 | NUR ---
PT NOW SLEEPING SOUNDLY ON HIS LEFT SIDE. DISCUSSED WITH HIS MEDICATIONS AND DECISION MADE TO HOLD MEDS UNTIL HE IS BACK AWAKE, AND THEN GIVE THEM.
[2017-04-11 21:09] VITALS: BP 106/67
--- NOTE | 2017-04-11 23:15 | NUR ---
PT STILL SLEEPING. ABLE TO GIVE HIS IV LASIX WITHOUT AWAKENING HIM. AT BEDSIDE. STILL WANTING TO WAIT UNTIL PT AWAKENS ON HIS OWN TO GIVE MEDS.
--- NOTE | 2017-04-11 23:45 | NUR ---
PT NOW AWAKE, ROLLING BACK AND FORTH IN BED, THROWING HIS LEG OVER RAIL. AND STAFF REPOSITIONED PATIENT. ALL MEDS GIVEN AT THIS TIME WITH 'S ASSISTANCE.
[2017-04-12 01:02] VITALS: BP 100/63
[2017-04-12 05:12] VITALS: BP 131/90
--- NOTE | 2017-04-12 06:37 | NUR ---
PT HAS SLEPT SINCE RECIEVING HIS NIGHTTIME MEDS, PT STILL ASLEEP AT THIS TIME. AM MEDS HELD AT SPOUSE REQUEST SINCE PT IS STILL ASLEEP.
[2017-04-12 06:39] LABS: BASOPHILS 0 % (0-2); EOSINOPHILS 0.1 % (0-7); HEMOGLOBIN 12.5 g/dL (13.5-17.5); IMMATURE GRANULOCYTES 0.4 % (0-5); LYMPHOCYTES 8.2 % (15-50); MCH 30.6 pg (26.0-34.0); MCHC 34.7 g/dL (31.0-37.0); MEAN PLATELET VOLUME 12.2 fL (7.4-10.4); MONOCYTES 5.7 % (2-11); NEUTROPHILS 85.6 % (40-80); PLATELET COUNT 133 10x3/uL (130-400); RBC 4.09 10x6/uL (4.20-6.10); RDW 15.6 % (11.5-14.5); WBC 13.9 10x3/uL (4.8-10.8)
[2017-04-12 06:59] LABS: ALBUMIN 3.2 g/dL (3.4-5.0); ANION GAP 15.4 mmol/L (8-16); BILIRUBIN - TOTAL 2.96 mg/dL (0.2-1.3); CALCIUM 8.9 mg/dL (8.5-10.1); CARBON DIOXIDE 32.5 mmol/L (21.0-32.0); CREATININE - SERUM 1.8 mg/dL (0.6-1.3); MAGNESIUM - SERUM 1.6 mg/dL (1.8-2.4); PHOSPHOROUS 3.7 mg/dL (2.5-4.9); POTASSIUM - SERUM 3.9 mmol/L (3.5-5.1); PROTEIN - SERUM 6.4 g/dL (6.4-8.2)
[2017-04-12 08:00] VITALS: BP 131/83
[2017-04-12 12:00] VITALS: BP 122/96
[2017-04-12 16:00] VITALS: BP 114/87
--- NOTE | 2017-04-12 16:00 | NUR ---
SLEEPING IN BED. FAMILY AT BEDSIDE. MEDS ADMINISTERED WITH HELP FROM SPOUSE. RESPIRATIONS NONLABORED. DENIES ANY NEEDS AT THIS TIME. BED LOCKED AND LOW. CALL LIGHT IN REACH. TWO SIDERAILS UP. BED ALARM ON.
[2017-04-12 19:00] VITALS: BP 123/85
--- NOTE | 2017-04-12 20:34 | NUR ---
HS MEDS GIVEN WITH FRESH ICE WATER, ULTRAM 1 TAB GIVEN FOR C/O PAIN. PTS AT BED SIDE, BED LOW, CL IN REACH, BED ALARM IN USE.
--- NOTE | 2017-04-12 21:50 | NUR ---
REPOSITIONED IN BED FOR COMFORT. AT BED SIDE.
[2017-04-13 01:06] VITALS: BP 113/79
[2017-04-13 01:16] LABS: ANION GAP 9.3 mmol/L (8-16); CALCIUM 8.9 mg/dL (8.5-10.1); POTASSIUM - SERUM 3.3 mmol/L (3.5-5.1)
--- NOTE | 2017-04-13 01:27 | NUR ---
RESTING WITH EYES CLOSED, RESPERATIONS EVEN, NO S/S DISTRESS NOTED.
--- NOTE | 2017-04-13 04:07 | NUR ---
BUSINESS AFFAIRS MANAGER AT BED SIDE TO OBTAIN VITALS.
[2017-04-13 04:27] VITALS: BP 120/67
--- NOTE | 2017-04-13 05:00 | NUR ---
ULTRAM 1 TAB GIVEN FOR C/O PAIN TO ABD. PT INCONTINENT OF URINE, CHANGED BRIEF AND PINK PAD UNDER PT. REPOSITIONED IN BED FOR COMFORT.
[2017-04-13 06:15] LABS: INR 2.96 (0.85-1.17)
[2017-04-13 06:17] LABS: ANION GAP 14.8 mmol/L (8-16); CALCIUM 8.4 mg/dL (8.5-10.1); CARBON DIOXIDE 33.7 mmol/L (21.0-32.0); CREATININE - SERUM 2.1 mg/dL (0.6-1.3); POTASSIUM - SERUM 3.5 mmol/L (3.5-5.1)
--- NOTE | 2017-04-13 07:48 | NUR ---
AM ROUNDING WITH PATIENT NPO STATUS FOR TESTING THIS AM. BED ALARM IS SET ALONG WITH MARYAN PAD. RIGHT AC SEEN WITH SALINE LOCK. ON ROOM AIR. OLD, HEALING BRUISE SEEN TO TOP OF LEFT KNEE. BRUISING SEEN TO GROIN AREA, RIGHT ABDOMINAL AREA, AND TOES OF RIGHT FOOT. WILL MONITOR.
[2017-04-13 09:09] VITALS: BP 112/64
[2017-04-13 09:51] LABS: CALCIUM 9.1 mg/dL (8.5-10.1); CARBON DIOXIDE 34.3 mmol/L (21.0-32.0); CREATININE - SERUM 2.2 mg/dL (0.6-1.3); POTASSIUM - SERUM 3.3 mmol/L (3.5-5.1)
--- NOTE | 2017-04-13 10:35 | NUR ---
CALLED AND SPOKE WITH DIA IN RADIOLOGY R/T MR OF ABDOMEN. BUN/CR ARE STILL TO HIGH FOR CONTRAST. NPO FOR U/S STILL. THIS INFORMATION IS PASSED TO THE .
[2017-04-13 12:26] LABS: INR 2.63 (0.85-1.17); PROTIME 28.3 SECONDS (11.6-15.0)
[2017-04-13 12:34] LABS: ALBUMIN 3.1 g/dL (3.4-5.0); ANION GAP 11.3 mmol/L (8-16); BILIRUBIN - TOTAL 2.6 mg/dL (0.2-1.3); CALCIUM 8.9 mg/dL (8.5-10.1); CARBON DIOXIDE 35.1 mmol/L (21.0-32.0); CREATININE - SERUM 2.2 mg/dL (0.6-1.3); POTASSIUM - SERUM 3.4 mmol/L (3.5-5.1); PROTEIN - SERUM 6.4 g/dL (6.4-8.2)
[2017-04-13 12:48] VITALS: BP 111/55
--- NOTE | 2017-04-13 16:52 | NUR ---
EVENING MEDS FOR THIS SHIFT WERE GIVEN WITH WATER. AT BEDSIDE. WILL CONTINUE TO MONITOR.
[2017-04-13 17:14] VITALS: BP 138/101
[2017-04-13 18:24] LABS: CALCIUM 8.9 mg/dL (8.5-10.1); CARBON DIOXIDE 33.4 mmol/L (21.0-32.0); CREATININE - SERUM 2.1 mg/dL (0.6-1.3); POTASSIUM - SERUM 3.4 mmol/L (3.5-5.1)
[2017-04-13 19:00] VITALS: BP 114/80
--- NOTE | 2017-04-13 20:42 | NUR ---
HS MEDS GIVEN, ULTRAM 1 TAB GIVEN FOR C/O PAIN. AT BED SIDE, BED LOW, CL IN REACH, BED ALARM IN USE.
--- NOTE | 2017-04-13 22:38 | NUR ---
RESTING ON LEFT SIDE, RESPERATIONS EVEN, BED LOW, CL IN REACH.
[2017-04-13 22:49] LABS: ANION GAP 8.4 mmol/L (8-16); CARBON DIOXIDE 33.9 mmol/L (21.0-32.0); CREATININE - SERUM 2.1 mg/dL (0.6-1.3); POTASSIUM - SERUM 3.3 mmol/L (3.5-5.1)
[2017-04-14] VITALS: BP 103/65
--- NOTE | 2017-04-14 02:31 | NUR ---
LYING IN BED, CALL LIGHT IN REACH. WILL CONTINUE WITH PLAN OF CARE
[2017-04-14 04:00] VITALS: BP 127/68
--- NOTE | 2017-04-14 04:37 | NUR ---
RESTING WITH EYES CLOSED, RESPERTIONS EVEN, NO S/S DISTRESS NOTED, BED LOW, CL IN REACH. BED ALARM IN USE.
[2017-04-14 05:49] LABS: BASOPHILS 0 % (0-2); EOSINOPHILS 0 % (0-7); HEMATOCRIT 36.5 % (42.0-54.0); IMMATURE GRANULOCYTES 0.4 % (0-5); LYMPHOCYTES 5.8 % (15-50); MCH 29.6 pg (26.0-34.0); MCHC 32.9 g/dL (31.0-37.0); MEAN PLATELET VOLUME 12.5 fL (7.4-10.4); MONOCYTES 4.5 % (2-11); NEUTROPHILS 89.3 % (40-80); RBC 4.05 10x6/uL (4.20-6.10); RDW 15.8 % (11.5-14.5)
[2017-04-14 05:59] LABS: MCV 90.1 fL (80.0-100.0); PLATELET COUNT 102 10x3/uL (130-400); WBC 19.5 10x3/uL (4.8-10.8)
[2017-04-14 06:15] LABS: ALBUMIN 2.9 g/dL (3.4-5.0); ANION GAP 10.1 mmol/L (8-16); BILIRUBIN - TOTAL 2.6 mg/dL (0.2-1.3); CALCIUM 8.8 mg/dL (8.5-10.1); CARBON DIOXIDE 34.2 mmol/L (21.0-32.0); CREATININE - SERUM 2.2 mg/dL (0.6-1.3); POTASSIUM - SERUM 3.3 mmol/L (3.5-5.1); PROTEIN - SERUM 6.1 g/dL (6.4-8.2)
--- NOTE | 2017-04-14 07:32 | NUR ---
COMPLAINTS OF PAIN TO HIP AREA, ULTRAM GIVEN PER ORDRES WITH SIPS WATER. SALINE LOCK SEEN TO RIGHT AC. ON 1L PER NC. BILATERAL CRACKLES HEARD THROUGHOUT LUNG MARQUEZ WITH RHONCHI HEARD IN BASES. BRUISES STILL SEEN TO RIGHT ABD AREA, GROIN/PENIS AREA, LEFT KNEE, RIGHT FOOT AND RIGHT WRIST AREA. BED ALARM IS ON. CONFUSED. WILL CONTINUE TO MONITOR.
[2017-04-14 08:17] VITALS: BP 113/81
[2017-04-14 09:16] LABS: ALPHA FETOPROTEIN -(TUMOR MRK) 6.8 ng/mL (0.0-8.3)
--- NOTE | 2017-04-14 09:27 | NUR ---
CALL PLACED TO PAYAL EUGENE R/T MINDY WITH B/P 113/81. AWAITING CALL BACK.
--- NOTE | 2017-04-14 09:30 | NUR ---
HILARY TO CALL BACK, SHE ASKED THAT I CALL RENAL IN REGARDS TO THE LASIX. PAGE INTO BALBIR ROSE APN WITH RENAL. AWAITING CALL BACK.
--- NOTE | 2017-04-14 09:40 | NUR ---
PER BALBIR ROSE APN TO CALL BACK WITH ORDERS TO GIVE THE LASIX.
[2017-04-14 10:03] LABS: ANION GAP 8.2 mmol/L (8-16); CALCIUM 9.1 mg/dL (8.5-10.1); CARBON DIOXIDE 35.4 mmol/L (21.0-32.0); CREATININE - SERUM 2.3 mg/dL (0.6-1.3); POTASSIUM - SERUM 3.6 mmol/L (3.5-5.1)
[2017-04-14 10:18] LABS: ANA REFLEX - DIRECT Negative (Negative)
--- NOTE | 2017-04-14 11:01 | NUR ---
PATIENT NOT WANTING TO WAKE UP VERY WELL. B/P 100/[address] ARM[address] BLANCA AT BEDSIDE ALONG WITH . DR BLANCA THINKS THE MEDS FROM LAST NIGHT ARE STILL "HANGING ON" HIS LIVER IS NOT FUNCTIONING WELL. NO NEW ORDERS.
--- NOTE | 2017-04-14 11:31 | NUR ---
DR CHOW HERE. NEW ORDERS ARE RECEIVED. CALLED CLAUDIA WITH R.T TO DO STAT ABG'S AND CALLED LAB FOR URGENT [place] LEVEL.
[2017-04-14 12:54] LABS: ANION GAP 11.9 mmol/L (8-16); CALCIUM 8.6 mg/dL (8.5-10.1); CARBON DIOXIDE 34.3 mmol/L (21.0-32.0); CREATININE - SERUM 2.3 mg/dL (0.6-1.3); POTASSIUM - SERUM 3.2 mmol/L (3.5-5.1)
--- NOTE | 2017-04-14 13:00 | NUR ---
LAB RESULTS ARE BACK AND I VERBALLY GAVE THEM TO DR CHOW. NO NEW ORDERS.
--- NOTE | 2017-04-14 13:22 | NUR ---
Nutrition Follow Up: Pt is eating 14% meal avg on a renal ADA diet. No BM since admit - x 7 days. Labs reviewed. Meds noted including Lasix. Rec consider changing diet to regular REG to encourage po intake. Rec consider an appetite stimulant. RD following.
--- NOTE | 2017-04-14 13:32 | NUR ---
COMPLETE LINEN CHANGE DONE FOR INCONT. OF URINE.
--- NOTE | 2017-04-14 14:51 | NUR ---
CALLED TO ROOM WITH STATING "HE SAYS HE FEELS IF HE IS GOING TO PASS OUT". PATIENT IS AWAKE, B/P IS 114/82 MANEUL TAKEN. APPLE JUICE AND SALT PACKAGE OFFERED TO PATIENT AND HE IS DRINKING IT. WILL MONITOR.
--- NOTE | 2017-04-14 15:29 | NUR ---
REGGIE, RN MAKING ROUNDS ASKS IF THE PATIENT CAN HAVE SOMETHING FOR NAUSEA THE HAD A COLD RAG ON HIS FOREHEAD. I WENT IN AND ASKED THE IF HE NEEDED SOMETHING AND SHE RELIED, "IT HAS PASSED, I THINK HE WAS COUGHING SO HARD BUT HE DOES NOT NEED ANYTHING NOW". I ASKED THAT SHE CALL ME IF HE NEEDS IT ANYMORE.
[2017-04-14 15:39] VITALS: BP 103/58
--- NOTE | 2017-04-14 17:07 | NUR ---
PT'S AT THE BEDSIDE. PT IS ORIENTED TO SELF ONLY. CONTINUES TO C/O OF PAIN IN LOWER ABDOMEN. LUNG SOUNDS W/ CRACKLES IN BILATERAL BASES. RESP TXS ORDERED AND BEING GIVEN WITH SOME IMPROVEMENT. PT IS SOMNOLENT INTERMITTENTLY, BUT IS EASY TO AROUSE W/ VERBAL AND TACTILE STIMULI. MOST RECENT LABS SHOW k+ 3.2, NA 130, AMMONIA 14. WBC UP TO 19.5. ADJUSTED MEDS TO HELP IMPROVE PT'S MENTATION. SALINE LOC IN PLACE TO RIGHT AC. PT CONTINUES TO REFUSE TELE. WILL CONTINUE TO MONITOR.
[2017-04-14 18:07] LABS: ANION GAP 17.3 mmol/L (8-16); CALCIUM 8.4 mg/dL (8.5-10.1); CARBON DIOXIDE 27.3 mmol/L (21.0-32.0); CREATININE - SERUM 2.3 mg/dL (0.6-1.3); POTASSIUM - SERUM 3.6 mmol/L (3.5-5.1)
[2017-04-14 19:00] VITALS: BP 112/86
--- NOTE | 2017-04-14 21:25 | NUR ---
HS MEDS GIVEN WITH FRESH ICE WATER, NORCO 1 TAB GIVEN FOR C/O PAIN. AT BED SIDE, BED LOW, CL IN REACH, BED ALARM IN USE.
[2017-04-15] VITALS: BP 110/70
--- NOTE | 2017-04-15 03:39 | NUR ---
RESTING WITH EYES CLOSED, RESPERATIONS EVEN, NO S/S DISTRESS NOTED. ASLEEP AT BED SIDE.
[2017-04-15 04:00] VITALS: BP 106/59
--- NOTE | 2017-04-15 04:48 | NUR ---
BATH AND LINEN CHANGE COMPLETE. REPOSITIONED IN BED FOR COMFORT. AT BED SIDE.
[2017-04-15 05:53] LABS: BASOPHILS 0 % (0-2); EOSINOPHILS 0 % (0-7); HEMATOCRIT 37.8 % (42.0-54.0); HEMOGLOBIN 12.7 g/dL (13.5-17.5); IMMATURE GRANULOCYTES 0.4 % (0-5); LYMPHOCYTES 5.4 % (15-50); MCH 30.3 pg (26.0-34.0); MCHC 33.6 g/dL (31.0-37.0); MCV 90.2 fL (80.0-100.0); MEAN PLATELET VOLUME 12.5 fL (7.4-10.4); MONOCYTES 5.5 % (2-11); NEUTROPHILS 88.7 % (40-80); PLATELET COUNT 104 10x3/uL (130-400); RBC 4.19 10x6/uL (4.20-6.10); WBC 15.1 10x3/uL (4.8-10.8)
[2017-04-15 06:20] LABS: ALBUMIN 2.7 g/dL (3.4-5.0); BILIRUBIN - TOTAL 2.8 mg/dL (0.2-1.3); CALCIUM 8.8 mg/dL (8.5-10.1); CREATININE - SERUM 2.6 mg/dL (0.6-1.3); MAGNESIUM - SERUM 1.8 mg/dL (1.8-2.4); PROTEIN - SERUM 6.1 g/dL (6.4-8.2)
[2017-04-15 06:23] LABS: ANION GAP 14.3 mmol/L (8-16); POTASSIUM - SERUM 4.3 mmol/L (3.5-5.1)
--- NOTE | 2017-04-15 07:20 | NUR ---
REOPRT RECIEVED. RR EVEN AND UNLABORED, PT RESTING QUIELTY. ABLE TO SAY HIS LAST NAME ONLY. ASKED IF HE COULD TELL ME THE YEAR AND WHERE HE WAS AND PT STARRED BLANKLY AT ME. ASSISTED PT TO GET COVERED AND POSTIONED IN THE BED. WILL CTM.
[2017-04-15 08:52] VITALS: BP 126/100
--- NOTE | 2017-04-15 10:39 | NUR ---
Patient Name: KAMRAN CANELA Admission Status: ER Accout number: [id number] Admission Date: 04-07-2017 : 1935 Admission Diagnosis:HYPO-OSMOLALITY AND HYPONATREMIA Attending: JOSH PYLE Current LOS: 8 Anticipated DC Date: Planned Disposition: Alf Facility Primary Insurance: [employer]ARE ADV PLANNED EXTERNAL PROVIDER: TO BE DETERMINED BY FAMILY LATE ENTRY FROM 04-14-17. Discharge Planning Comments: * Is the patient Alert and Oriented? No 0 * How many steps to enter\exit or inside your home? 13 0 * PCP DR. QUACH 0 * Pharmacy [facility] ON [address] 0 * Preadmission Environment Home with Family 0 * ADLs Independent 0 * Equipment Cane Rolling Walker 0 * Other Equipment NO MEDICAL EQUIPMENT PROVIDER PREFERENCE 0 * List name and contact numbers for known caregivers / representatives who currently or will assist patient after discharge: NANCY CANELA, SPOUSE, 0 * Community resources currently utilized None 0 * Please name any agencies selected above. NONE 0 * Additional services required to return to the preadmission environment? Yes * Can the patient safely return to the preadmission environment? No 0 * Has this patient been hospitalized within the prior 30 days at any hospital? Yes 0 CM MET WITH PT IN ROOM TO DISCUSS DISCHARGE PLANNING AND NEEDS. PT NON RESPONSIVE TO CM, PT'S SPOUSE REPORTS PT LIVING AT HOME INDEPENDENTLY WITH HER UNTIL THIS SEIZURE AT HOME. PT HAS A CANE AND ROLLING WALKER WITH NO MEDICAL EQUIPMENT PROVIDER PREFERENCE. PT HAS NO OUTSIDE SERVICES ASSISTING IN THE HOME. CM DISCUSSED AVAILABILITY OF HOME HEALTH, REHAB SERVICES AND MEDICAL EQUIPMENT. SPOUSE THINKS THAT PT IS NOT GOING TO BE ABLE TO DO ENOUGH THERAPY TO GET INTO INPATIENT REHAB AND BELIVES HE MAY HAVE TO GO TO [facility] FOR REHAB SERVICES. CHOICE LISTING PROVIDED AND DISCUSSED. PT'S SPOUSE WILL CONSIDER [facility] REHAB OPTIONS AND LET CM KNOW WHEN SHE MAKES A DECISION. CM WAITING ON FAMILY CHOICE OF [facility] FACILITY TO CONTINUE DISCHARGE ARRANGEMENTS. Foot Gatherer: Case Sanders
--- NOTE | 2017-04-15 14:40 | NUR ---
CODE BLUE CALLED. LOGISTICS SUPERVISOR FOUND PT NOT BREATHING. INITIATED CPR. FAMILY AT BEDSIDE WHEN PT STOPPED BREATHING. SEE CODE FLOW SHEET.
--- NOTE | 2017-04-15 14:51 | NUR ---
DR. COHEN CALLED CODE. PRONOUCED PT. FAMILY NOTIFIED.
[2017-04-15 15:22] LABS: SMOOTH MUSCLE ABS (ACTIN) 13 Units (0-19)
--- NOTE | 2017-04-15 15:47 | NUR ---
CALLED EMILIA REGARDING PT . SPOKE TO AB, PT DOES NOT MEET CRITERIA DUE TO AGE.
--- NOTE | 2017-04-15 16:00 | NUR ---
BROADCAST OPERATIONS ENGINEER NOTIFED ABOUT PT . SPOKE TO ADOLPH CHAUDHRY.
--- NOTE | 2017-04-15 16:24 | NUR ---
RECORD OF FORM FILLED OUT. PTS WILL BE TAKING GLASSES AND DENTURES, WELL ALL CLOTHING.
--- NOTE | 2017-04-15 16:25 | NUR ---
FAMILY TOLD ME IT WAS OKAY TO NOTIFY HOME. NOTIFIED HOME AT 1625. WILL CONTINUE TO ATTEND TO FAMILY NEEDED.
--- NOTE | 2017-04-15 17:54 | NUR ---
HOME HERE TO CHARGE ACCOUNT AUTHORIZER PT. FAMILY REPORTED THAT THE STAFF "DID A GREAT JOB."
[2017-04-15 20:10] LABS: HSV 1 DNA (PCR) Negative (Negative); HSV 2 DNA (PCR) Negative (Negative)
[2017-04-16 21:08] LABS: CMV QUANT DNA PCR (PLASMA) Positive < 200 IU/mL (Negative)
[2017-04-16 22:08] LABS: EBV DNA QUANT PCR Negative (Negative)
--- NOTE | 2017-04-28 12:59 | CN ---
PATIENT NAME:KAMRAN CANELA MEDICAL RECORD: [id number] : 37 LOCATION:[facility].2135 ADMIT DATE: 04/07/17 ACCOUNT: [id number] CONSULTING PHYSICIAN: RANDOLPH TOBIN MD REFERRING PHYSICIAN: JOSH ROA MD DATE OF CONSULTATION: 04/08/2017 CONSULTATION NOTE HISTORY OF PRESENT ILLNESS: An 81-year-old gentleman with known history of coronary artery disease. He has a history of preserved LV systolic function, recently had an angiography. He had a Slade stent placed at that time and has about a week history of edema, confusion and reports seizure activity. He was found to be markedly hyponatremic and was on a 5-day course of diuresis approximately 1 week ago. BNP is elevated, this is somewhat chronic. He does have elevated pulmonary artery pressure. We are asked to see him concerning his cardiovascular status. PAST MEDICAL HISTORY: 1. He has a history of a chronic atrial fibrillation. 2. Coronary artery disease. 3. Gastroesophageal reflux disease. ALLERGIES: None known. MEDICATIONS: Include Pradaxa 150 mg b.i.d., Plavix 75 every day, pravastatin 40 every day, sotalol 80 b.i.d., Prozac 10 every day, Prilosec 40 every day, Carafate 1 g a.c. and q.h.s. SOCIAL HISTORY: , lives in [place]. Nonsmoker and nondrinker, typically takes care of all his ADLs, although have been quite confused the past week. REVIEW OF SYSTEMS: The patient reports easy bruising but reports no swollen glands. The patient reports no fever, no night sweats, no significant weight gain, no significant weight loss. No significant exercise tolerance. The patient reports no dry eyes, no irritation, no vision change. Patient reports no difficulty hearing and no ear pain. Patient reports no frequent nose bleeds or nose and sinus problems. Patient reports on arm pain on exertion. No shortness of breath while lying down. No history of heart murmur. Patient reports no cough, no wheezing or coughing up blood. Patient reports no abdominal pain, no vomiting. Normal appetite. No diarrhea and not vomiting blood. No nausea and no constipation. Patient reports no incontinence. No difficulty urinating. No hematuria. No increased frequency. Patient reports no muscle aches. No weakness, no arthralgias, no back pain. No swelling of the extremities. Patient reports no abnormal mole, no jaundice, no rashes. Reports no loss of consciousness. No weakness and no numbness. No seizures, dizziness, or headaches. The patient reports no depression, no sleep disturbance, feeling safe in a relationship and no alcohol abuse. Patient reports on fatigue. Reports no runny nose or sinus pressure. No itching, no hives, and no frequent sneezing. PHYSICAL EXAMINATION: GENERAL: Pleasant gentleman in no acute distress. Obviously, he is somewhat slow and confused. CONSULT REPORT [id number] KAMRAN CANELA VITAL SIGNS: Blood pressure 145/97, pulse 74, irregular. HEENT: Normocephalic and atraumatic. NECK: No JVD or bruit. HEART: Irregular with II/ systolic ejection murmur. LUNGS: Good air excursion. ABDOMEN: Soft and nontender. EXTREMITIES: 2+ pulses and 2+ edema. DIAGNOSTIC DATA: ECG without acute ischemic changes underlying atrial fibrillation. IMPRESSION: Hyponatremia, probably related to previous diuretics. At this point in time, agree with fluid restriction and other workup for hyponatremia. No specific recommendations from cardiac standpoint. We will follow with you. TRANSINT:[id number] Voice Confirmation ID: [id number] DOCUMENT ID: [id number] RANDOLPH TOBIN MD at 1259 CC: [id number] DICTATION DATE: 04/08/17 0843 OCCUPATIONAL HEALTH AND SAFETY OFFICER: 04/08/17 1022 DIS IN 04/15/17 [id number] [place] [address]
== END 2017-04-15 17:56 | DRG 640 ==
LOC: D.ER 10:21 → D.M2 15:38
PROVIDERS: Emergency Medicine; Family Medicine; Internal Medicine Gastroenterology; Internal Medicine Nephrology; ADMIT Family Medicine Adult Medicine
DX: E87.1 Hypo-osmolality and hyponatremia (principal); G93.41 Metabolic encephalopathy; N17.9 Acute kidney failure, unspecified; I48.2 Chronic atrial fibrillation; K21.9 Gastro-esophageal reflux disease without esophagitis; I25.10 Atherosclerotic heart disease of native coronary artery without angina pectoris; R56.9 Unspecified convulsions; I11.0 Hypertensive heart disease with heart failure; I50.9 Heart failure, unspecified; E11.65 Type 2 diabetes mellitus with hyperglycemia; D64.9 Anemia, unspecified; R41.0 Disorientation, unspecified; Z95.5 Presence of coronary angioplasty implant and graft; Z86.73 Personal history of transient ischemic attack (TIA), and cerebral infarction without residual deficits; Z87.891 Personal history of nicotine dependence